=== PATIENT | male | born 2000 | race Caucasian/White ===

== ENCOUNTER 2019-10-07 11:37 | Inpatient (IN) | payer MEDICAID ==
[~2019-10-07] VITALS: Ht 172.7 cm; Wt 76.0 kg
--- NOTE | 2019-10-07 14:45 | NUR ---
ADMIT NOTE Patient is 18 year old male who was deemed not to have the capacity to assist his managing attorney in preparation of his defense and does not demonstrate sufficient knowledge of the court system. Therefore it was recommended he be placed in an inpatient unit designed to assist in return to competency (1370.) In the past he has been diagnosed with Bipolar I disorder, substance abuse disorder and PTSD. [facility], [facility] and other psychiatric facilities. Upon admission he reports hearing voices and seeing things "all the time, they never go away." he was cooperative with admission process.
[2019-10-07] MEDS ORDERED: acetaminophen 325mg tablet PO PRN ×2 (14:55)
[2019-10-07] MEDS ORDERED: mag hydrox/Alum hydrox/simeth 30ml oral suspension PO PRN (14:55)
[2019-10-07] MEDS ORDERED: loperamide 2mg capsule PO PRN (14:55)
[2019-10-07] MEDS ORDERED: magnesium hydroxide 30ml (MOM) UD suspension PO PRN (14:55)
[2019-10-07] MEDS: LORazepam 1 MG tablet PO PRN ×3 (15:05→22:00)
[2019-10-07 15:30] VITALS: BP 142/76
[2019-10-07 15:59] VITALS: BP 142/76
[2019-10-07] MEDS ORDERED: NO HOME MEDS (17:32)
[2019-10-07 20:00] VITALS: BP 142/76
[2019-10-07] MEDS ORDERED: LORazepam 1 MG tablet PO PRN (20:00)
[2019-10-07] MEDS ORDERED: olanzapine 10mg tablet PO ONE (21:00)
--- NOTE | 2019-10-07 22:20 | NUR ---
Nursing Progress Note: Legal hold: 1370 Client on involuntary status to determine competency for court Report received from nurse with use of JAIR Castañeda Why are they here:.Patient is 18 year old male who was deemed not to have the capacity to assist his real estate attorney in preparation of his defense and does not demonstrate sufficient knowledge of the court system. Therefore it was recommended he be placed in an inpatient unit designed to assist in return to competency (1370.) In the past he has been diagnosed with Bipolar I disorder, substance abuse disorder and PTSD. He has been in and out of [facility], the residential and other psychiatric facilities. Upon admission he reports hearing voices and seeing things "all the time, they never go away." he was cooperative with admission process. Assessment What has happened this shift: Pt was in the rec room at change of shift socializing with other patients. He is hypomanic and has rapid speech. He is asking to play the guitar, get his shoes, wants the remote and wants to know when he can leave. Pt growls when he is told no or to wait for something but he does attempt to follow direction when redirected. Pt was asked to refrain from cussing as he became loud and began cussing while on the phone with "tony". Pt states he doesnt like to take meds but is med compliant. He reports that he hears voices and sees things "but I tune them out, they're always there." Pt also reports nightmares but is dismissive about this and waves his hand stating "I dont want to talk about it, why are you being so nice to me?.. nobody asks how I am." Pt repeats that he doesnt like meds but he is dancing and jumping up and down and states "Im so happy, I can't sleep when Im happy, do you have any Seroquel?" Pt was med compliant with HS meds and also had 2 prn doses of Ativan before laying down in bed. S/I, H/I: Denies A/VH: hears voices and sees things but he "tunes them out" Sleep: reports that he sleeps good ADL's: independent will need prompts and reminders Group attendance: no evening groups but interacts socially with other patients and staff Were meds taken: yes Any med S/E none reported or observed Mental Status Exam Appearance: unkempt, unshaven, wearing green scrubs Eye contact: good Behavior: pt is jumping up and down, dancing, has rapid speech, has to be redirected often for shouting, pt attempts to calm himself and is directable but has a hard time maintaining a calm demeanor Speech: rapid, pressured, loud Mood: euthymic, agitated Affect: labile Thought process: tangential, Thought Content: wants his shoes, wants to leave, wants to play the guitar, Cognition: a/ox4 Insight: fair Judgment: poor Interventions PRN's used: ativan Therapeutic interventions: Maintained a safe and therapeutic environment, medication administration/monitoring/education, monitored behavior and need for intervention, provided active listening and positive encouragement, maintained Q 15min safety checks. Restraints/seclusion/emergency medication: N/A Justification of Continued Inpatient Treatment: Patient is here to determine if competency can be restored for court.
[2019-10-08 07:56] LABS: CHOL/HDL RATIO 4.2 (0.00-4.99); CHOLESTEROL 129 MG/DL (0-200); HDL CHOLESTEROL 31 MG/DL (35-60); LDL CHOLESTEROL 91 MG/DL (50-100); TRIGLYCERIDES 61 MG/DL (20-135)
[2019-10-08 08:00] VITALS: BP 118/82
[2019-10-08 08:26] LABS: HEMOGLOBIN A1C 5.6 % (4.5-6.2)
--- NOTE | 2019-10-08 17:22 | NUR ---
Nursing Progress Note: Legal hold: 1370 Client on involuntary status to determine competency for court Report received from nurse, JAGDEEP Adair with use of SBAR Why are they here: Pt deemed not to have the capacity to assist his erisa attorney in preparation of his defense and does not demonstrate sufficient knowledge of the court system. Therefore it was recommended he be placed in an inpatient unit designed to assist in return to competency (1370). In the past he has been diagnosed with Bipolar I disorder, substance abuse disorder and PTSD. He has been [facility] and out of [facility], the [facility] and other psychiatric facilities. Upon admission he reports hearing voices and seeing things "all the time, they never go away." he was cooperative with admission process. Assessment What has happened this shift: Pt asleep at start of shift. Pt awoke for breakfast and was later seen up on the unit; singing and dancing and visiting w/peers and staff. S/I, H/I: Denies A/VH: Does not appear to be responding to internal stimuls Sleep: N/A ADL's: independent Group attendance: N/A Were meds taken: Yes Any med S/E: None reported or observed Mental Status Exam Appearance: unkempt, unshaven, wearing green scrubs Eye contact: good Behavior: Pt observed on the unit singing and dancing Speech: rapid, loud Mood: Inpatient w/peers and staff Affect: labile Thought process: Linear Thought Content: in the present Cognition: A/Ox4 Insight: Fair Judgment: Poor Interventions PRN's used: N/A Therapeutic interventions: Provided am assessment w/therapeutic communication and active listening, monitored behavior provided redirecting as needed, maintained Q 15min safety checks. Restraints/seclusion/emergency medication: N/A Justification of Continued Inpatient Treatment: Patient is here to determine if competency can be restored for court.
[2019-10-08] MEDS: divalproex sod 250mg ER (24-hour) tablet PO SCH (20:11)
[2019-10-08] MEDS: olanzapine 10mg tablet PO SCH (20:11)
[2019-10-08] MEDS: LORazepam 1 MG tablet PO PRN (21:23)
--- NOTE | 2019-10-08 22:22 | NUR ---
Nursing Progress Note: Legal hold: 1370 Client on involuntary status to determine competency for court Report received from nurse, JAGDEEP Adair with use of SBAR Why are they here: Pt deemed not to have the capacity to assist his criminal defense attorney in preparation of his defense and does not demonstrate sufficient knowledge of the court system. Therefore it was recommended he be placed in an inpatient unit designed to assist in return to competency (1370). In the past he has been diagnosed with Bipolar I disorder, substance abuse disorder and PTSD. He has been in and out of [facility], [facility] and other psychiatric facilities. Upon admission he reports hearing voices and seeing things "all the time, they never go away." he was cooperative with admission process. Assessment What has happened this shift: Pt was socializing with other patients in the hallway at change of shift. Pt continues to be hypomanic, speech is tangential and he laughing and joking with others. Pt is flirtatious with female staff and patients and is redirected multiple times. Pt was seen antagonizing other patients, standing and then dancing in front of patients attempting to watch tv and making faces at other patients and laughing at them when they are in crisis. Pt was redirected to his room at and [facility] but does go to his room. S/I, H/I: Denies A/VH: pt states he hears voices all the time but ignores them, pt asks other patients, "are you seeing what I'm seeing? Oh I see things other people dont all the time" Sleep: pt reports sleeping well at night ADL's: independent Group attendance: N/A Were meds taken: Yes, pt complains about taking medications but takes them. Any med S/E: None reported or observed Mental Status Exam Appearance: unkempt, unshaven, wearing street clothes. Eye contact: good Behavior: Pt observed on the unit singing and dancing Speech: rapid, loud Mood: anxious, euthymic Affect: labile Thought process: Linear Thought Content: in the present Cognition: A/Ox4 Insight: Fair Judgment: Poor Interventions PRN's used: N/A Therapeutic interventions: Provided am assessment w/therapeutic communication and active listening, monitored behavior provided redirecting as needed, maintained Q 15min safety checks. Restraints/seclusion/emergency medication: N/A Justification of Continued Inpatient Treatment: Patient is here to determine if competency can be restored for court.
[2019-10-09 07:30] VITALS: BP 126/68
[2019-10-09] MEDS: divalproex sod 250mg ER (24-hour) tablet PO SCH ×2 (07:58→20:47)
[2019-10-09] MEDS ORDERED: LORazepam 2 mg/ml vial IM PRN (11:55)
[2019-10-09] MEDS ORDERED: diphenhydrAMINE 25mg capsule PO PRN (11:55)
[2019-10-09] MEDS ORDERED: haloperidol 1mg tablet PO PRN (11:55)
[2019-10-09] MEDS ORDERED: diphenhydrAMINE 50 mg/ml inj IM PRN (11:55)
[2019-10-09] MEDS ORDERED: haloperidol lactate 5mg/ml inj IM PRN (11:55)
--- NOTE | 2019-10-09 15:13 | NUR ---
Nursing Progress Note: Legal hold: 1370 Client on involuntary status to determine competency for court Report received from nurse, JAGDEEP Adair with use of SBAR Why are they here: Pt deemed not to have the capacity to assist his business attorney in preparation of his defense and does not demonstrate sufficient knowledge of the court system. Therefore it was recommended he be placed in an inpatient unit designed to assist in return to competency (1370). In the past he has been diagnosed with Bipolar I disorder, substance abuse disorder and PTSD. He has been in and out of [facility], the senior care and other psychiatric facilities. Upon admission he reports hearing voices and seeing things "all the time, they never go away." he was cooperative with admission process. Assessment What has happened this shift: Pt is up on the unit pacing hallways and asking for "music." Pt given the headphones. Pt loud and intrusive w/staff and peers. At one point he was re-directed and became loud and yelling as he went down the woods to his room. Ativan 2mg given. Pt became quieter and was easier to re-direct after taking the medication. He was started on Depakote this morning. S/I, H/I: Denies A/VH: Denies Sleep: N/A ADL's: independent Group attendance: N/A Were Meds taken: Yes Any med S/E: None reported or observed Mental Status Exam Appearance: Unkempt, disheveled; wearing green scrubs Eye contact: good Behavior: Intrusive, demanding and loud Speech: Loud Mood: Irritable Affect: dysphoric Thought process: Linear Thought Content: Self-centered Cognition: A/Ox4 Insight: Fair Judgment: Poor Interventions PRN's used: N/A Therapeutic interventions: Provided am assessment w/therapeutic communication and active listening, monitored behavior provided redirecting as needed, maintained Q 15min safety checks. Restraints/seclusion/emergency medication: N/A Justification of Continued Inpatient Treatment: Patient is here to determine if competency can be restored for court.
[2019-10-09] MEDS: olanzapine 10mg tablet PO SCH (20:47)
[2019-10-09] MEDS: LORazepam 1 MG tablet PO PRN (21:56)
--- NOTE | 2019-10-10 00:15 | NUR ---
Nursing Progress Note: Legal hold: 1370 Client on involuntary status to determine competency for court Report received from nurse, JAGDEEP Santiago with use of SBAR Why are they here: Pt deemed not to have the capacity to assist his assistant attorney general in preparation of his defense and does not demonstrate sufficient knowledge of the court system. Therefore it was recommended he be placed in an inpatient unit designed to assist in return to competency (1370). In the past he has been diagnosed with Bipolar I disorder, substance abuse disorder and PTSD. He has been in and out of [facility], the longterm and other psychiatric facilities. Upon admission he reports hearing voices and seeing things "all the time, they never go away." he was cooperative with admission process. Assessment What has happened this shift: Pt walking around unit, socializing with staff and peers. Pt is hypomanic, tangential, and joking around with others. Pt spent majority of time wanting to watch music videos. Took a shower and talked on the the phone with his mom. Pt parrots RN speech frequently and then laughs. Intrusive behavior is re-directable and pt is compliant with medications. S/I, H/I: Denies A/VH: Denies, But observed to be preoccupied with IS Sleep: See Sleep Assessment ADL's: Independent Group attendance: N/A Were meds taken: Yes, States he doesn't want to take them but will Any med S/E: None reported or observed Mental Status Exam Appearance: unkempt, unshaven, wearing street clothes Eye contact: good Behavior: Talking loudly, running (redirected to stop), watching music videos, laughing, rapping Mood: Euthymic Affect: Blunted with brightening Thought process: Linear, tangential Thought Content: in the present Cognition: A/Ox4 Insight: Poor Judgment: Poor Interventions PRN's used: Ativan 2mg Therapeutic interventions: Provided am assessment w/therapeutic communication and active listening, monitored behavior provided redirecting as needed, maintained Q 15min safety checks. Restraints/seclusion/emergency medication: N/A Justification of Continued Inpatient Treatment: Patient is here to determine if competency can be restored for court.
[2019-10-10] MEDS: divalproex sod 250mg ER (24-hour) tablet PO SCH ×2 (07:58→20:15)
--- NOTE | 2019-10-10 12:47 | NUR ---
PSYCHOSOCIAL ASSESSMENT Sergio is a 18 y/o single male who is currently at [facility] on a 1370 to get restored to competency. He has a history of Oppositional Defiant Disorder, Bipolar, PTSD, and amphetamine and cannabis abuse. He has been hospitalized twice at [facility] and once at [place]. He has a history of non-compliance with treatment. On the unit, Sergio presents as hyper-verbal, intrusive, sexually inappropriate, with rapid, pressured speech. He was a poor historian and appeared to say things to account underwriter trying to get a reaction from account underwriter. MARI Kelly Addendum: 10/10/19 at 1249 by Sidra Neville Amended: Links added.
--- NOTE | 2019-10-10 15:22 | NUR ---
Nursing Progress Note: Legal hold: 1370 Client on involuntary status to determine competency for court Report received from nurse, JAGDEEP Adair with use of SBAR Why are they here: Pt deemed not to have the capacity to assist his bonderizer in preparation of his defense and does not demonstrate sufficient knowledge of the court system. Therefore it was recommended he be placed in an inpatient unit designed to assist in return to competency (1370). In the past he has been diagnosed with Bipolar I disorder, substance abuse disorder and PTSD. He has been in and out of [facility], the [facility] and other psychiatric facilities. Upon admission he reports hearing voices and seeing things "all the time, they never go away." he was cooperative with admission process. Assessment What has happened this shift: Patient was asleep at change of shift and up before breakfast. Patient is loud and intrusive w/staff and peers. Patient is able to redirect with much encouragement. Patient also has inappropriate statements at times. Patient got upset at one of the Techs and called him a "Spic" after patient was corrected for saying something inappropriate.. Patient then went to his room. After cooling down patient is in the woods smiling and laughing. Patient needs better boundaries with peers and staff. Patient takes his meds as prescribed. Patient states he wants to go home. Patient has a abrasion on his left forearm that he was scratching and started to bleed. RN cleansed area, placed Neosporin on wound and bandaged wound. Patient's behavior was better today. Patient came out of his room with marker on his face and arms. Patient stated he is bored. RN offered patient paper but patient declined. S/I, H/I: Denies A/VH: Denies Sleep: N/A ADL's: independent Group attendance: N/A Were Meds taken: Yes Any med S/E: None reported or observed Mental Status Exam Appearance: Unkempt, disheveled; his own clothes. Eye contact: good Behavior: Intrusive, demanding and loud Speech: Loud Mood: Labile Affect: dysphoric Thought process: Linear Thought Content: Self-centered Cognition: A/Ox4 Insight: Fair Judgment: Poor Interventions PRN's used: N/A Therapeutic interventions: Provided am assessment w/therapeutic communication and active listening, monitored behavior provided redirecting as needed, maintained Q 15min safety checks. Restraints/seclusion/emergency medication: N/A Justification of Continued Inpatient Treatment: Patient is here to determine if competency can be restored for court.
--- NOTE | 2019-10-10 15:50 | NUR ---
Initial: Pt admitted on 1370 with bipolar disorder. Pt currently on regular diet documented with 100% PO intake meeting nutrient needs. LBM 5/4 documented as moderate, with PRN bowel care available. No edema or wounds. No nutrition diagnosis at this time. Will continue to follow. Recommendations: 1) Continue regular diet 2) Bowel care PRN 3) Wt per rx Addendum: 10/10/19 at [address] Amended: Links added.
[2019-10-10] MEDS: olanzapine 10mg tablet PO SCH (20:15)
[2019-10-10] MEDS: LORazepam 1 MG tablet PO PRN (21:44)
--- NOTE | 2019-10-11 00:58 | NUR ---
Nursing Progress Note: Legal hold: 1370 Client on involuntary status to determine competency for court Report received from nurseQuinton RN with use of SBAR Why are they here: Pt deemed not to have the capacity to assist his county attorney in preparation of his defense and does not demonstrate sufficient knowledge of the court system. Therefore it was recommended he be placed in an inpatient unit designed to assist in return to competency (1370). In the past he has been diagnosed with Bipolar I disorder, substance abuse disorder and PTSD. He has been in and out of [facility], the group home and other psychiatric facilities. Upon admission he reports hearing voices and seeing things "all the time, they never go away." he was cooperative with admission process. Assessment What has happened this shift: Pt continues to be intrusive but re-directable, inserting himself into both staff and peer conversations. Remains hyper-verbal and energetic, having to be asked not to run multiple times. Pt requesting seroquel this evening and reacts by fake crying when he is told that is not prescribed. Pt's affect labile this evening, switching was euphoric to serious and intense within a short span during interactions. He is compliant with HS medications and directions from staff; occasionally sexually inappropriate but maintaining boundaries from pts. Pt sleeping well and was agreeable to go to room at 2200, when staff said it was 'quiet time'. S/I, H/I: Denies A/VH: Denies Sleep: See Sleep Assessment ADL's: Independent Group attendance: N/A Were meds taken: Yes, States he doesn't want to take them but will Any med S/E: None reported or observed Mental Status Exam Appearance: Showered, wearing street clothes Eye contact: good Speech: Pressured, hyperverbal Behavior: Talking loudly, running (redirected to stop), watching music videos, laughing Mood: Euthymic Affect: Labile Thought process: Flight of ideas Thought Content: wanting seroquel Cognition: A/Ox4 Insight: Poor Judgment: Poor Interventions PRN's used: Ativan 2mg Therapeutic interventions: Provided am assessment w/therapeutic communication and active listening, monitored behavior provided redirecting as needed, maintained Q 15min safety checks. Restraints/seclusion/emergency medication: N/A Justification of Continued Inpatient Treatment: Patient is here to determine if competency can be restored for court.
[2019-10-11 07:30] VITALS: BP 135/77
[2019-10-11] MEDS: divalproex sod 250mg ER (24-hour) tablet PO SCH (07:52)
--- NOTE | 2019-10-11 17:38 | NUR ---
Nursing Progress Note: Legal hold: 1370 Client on involuntary status to determine competency for court Report received from nurse, JAGDEEP Ahn with use of SBAR Why are they here: Pt deemed not to have the capacity to assist his real estate attorney in preparation of his defense and does not demonstrate sufficient knowledge of the court system. Therefore it was recommended he be placed in an inpatient unit designed to assist in return to competency (1370). In the past he has been diagnosed with Bipolar I disorder, substance abuse disorder and PTSD. He has been in and out of [facility], the group home and other psychiatric facilities. Upon admission he reports hearing voices and seeing things "all the time, they never go away." he was cooperative with admission process. Assessment What has happened this shift: Pt. sleeping at start of shift. Pt. awake for medications and breakfast. Pt. took all medications and ate all meals. Pt. requesting more food. Pt. refused physicall assessment, states, "I'm tired of everyone asking the same things of me." Pt. got into verbal confrontation with a female pt. and given redirection, however, pt. is difficult to redirect. Pt. denies SI/HI, A/V hallucinations. Pt. wearing headphones, pacing, and raping loudly and cursing. Pt. is difficult to redirect and informed that security would be called if pt. did not listen to staff redirection. S/I, H/I: Denies A/VH: Denies Sleep: Pt. napped for 3 hours during day shift. ADL's: Independent Group attendance: N/A Were meds taken: Yes Any med S/E: None reported or observed Mental Status Exam Appearance: Showered, wearing street clothes Eye contact: good Speech: Loud, Pressured, hyperverbal Behavior: Rapping, cursing, arguing loudly with female peer. Mood: Mischeivous Affect: Labile Thought process: Linear with flight of ideas. Thought Content: Wanting discharge. Cognition: A/Ox4 Insight: Poor Judgment: Poor Interventions PRN's used: None Therapeutic interventions: Provided am assessment w/therapeutic communication and active listening, monitored behavior provided redirecting as needed, maintained Q 15min safety checks. Restraints/seclusion/emergency medication: N/A Justification of Continued Inpatient Treatment: Patient is here to determine if competency can be restored for court.
[2019-10-11] MEDS: divalproex sodium 250mg tablet PO SCH (20:03)
[2019-10-11] MEDS: OLANZAPINE 5 MG TABLET PO SCH (20:03)
[2019-10-11] MEDS: LORazepam 1 MG tablet PO PRN (20:03)
--- NOTE | 2019-10-12 04:04 | NUR ---
Nursing Progress Note: Legal hold: 1370 Client on involuntary status to determine competency for court Report received from JAGDEEP Alcantara with use of SBAR Why are they here: Patient deemed not to have the capacity to assist his erisa attorney in preparation of his defense and does not demonstrate sufficient knowledge of the court system. Therefore it was recommended he be placed in an inpatient unit designed to assist in return to competency (1370). In the past patient has been diagnosed with Bipolar I disorder, substance abuse disorder and PTSD. Patient has been in and out of [facility], [facility] and other psychiatric facilities. Upon admission patient reports hearing voices and seeing things "all the time, they never go away." he was cooperative with admission process. Assessment What has happened this shift: Patient is pacing halls at shift change. Patient presents as manic and hyperverbal. This scientific writer introduces self and established rapport. Patient refused vitals and 1:1 assessment, but was compliant with HS medications. Patient states the reason he is here "its because I stole some chicken from [employer]." "But this is a great place, there are women, good food, and that bed is like a Posturpedic." Patient is energetic pacing halls through out the shift, making grunting sounds, talking to himself, pushing himself into other patient and staff conversations. Patient is unable to focus on one subject. Patient is administered PRN Ativan 2mg with HS medication. Patient is later heard telling his peers "that these nurses here are told to tell me to be quiet" he then says something about aliens then walks away. Patient talks about wanting "to get out of here, I need to see my sister." Patient asked this scientific writer if she would change the bandages on his left forearm. Wound was cleaned and redressed. Wound area is reddened and needs to continued monitoring. During this time patient rambled on about how he "likes to do dope" and that he is gong to "smoke meth when he gets out of here." Patient is given headphones for distraction and this is effective for a short time. Patient has been redirectable this shift, but remains elevated and tangential. Patient was asked to go to this room around 2200, that is was bedtime, next thing you know patient was asleep. S/I, H/I: Patient denies. A/VH: Patient denies. Sleep: Patient does not require any sleeping PRN's. Pt. was administered 2mg Ativan with HS meds. See Sleep Assessment for total hours. ADL's: Independent Group attendance: physical therapy director no group. Were meds taken: Yes, takes medication with issue. "I like taking pills." Any med S/E: None reported or observed Mental Status Exam Appearance: Clean, wearing black shirt and jeans. Eye contact: Good Speech: Pressured, hyperverbal, loud Behavior: Intrusive, loud, impulsive. Mood: Elevated. Affect: Congruent with mood. Thought process: Flight of ideas Thought Content: "I want to get out of here," "I need to get out of here." Cognition: A/Ox4 Insight: Poor Judgment: Poor Interventions PRN's used: Ativan 2mg Therapeutic interventions: Provided therapeutic communication and active listening, monitored behavior provided redirecting as needed, medication administration/education/monitoring, boundary setting, maintained Q 15min safety checks. Restraints/seclusion/emergency medication: N/A Justification of Continued Inpatient Treatment: Patient is here to determine if competency can be restored for court.
[2019-10-12] MEDS: divalproex sodium 250mg tablet PO SCH ×2 (08:03→20:57)
[2019-10-12] MEDS: haloperidol 5mg tablet PO PRN (08:06)
--- NOTE | 2019-10-12 17:31 | NUR ---
Nursing Progress Note: Legal hold: 1370 Client on involuntary status to determine competency for court Report received from JAGDEEP Maldonado with use of SBAR Why are they here: Patient deemed not to have the capacity to assist his collections attorney in preparation of his defense and does not demonstrate sufficient knowledge of the court system. Therefore it was recommended he be placed in an inpatient unit designed to assist in return to competency (1370). In the past patient has been diagnosed with Bipolar I disorder, substance abuse disorder and PTSD. [facility] and other [facility] facilities. Upon admission patient reports hearing voices and seeing things "all the time, they never go away." he was cooperative with admission process. Assessment What has happened this shift: Pt refused am vitals or assessment. acoustic intelligence specialist went to talk with pt and he began yelling saying I already told you Im not doing anything you ask. Ill take medications and thats it. When RN came in to given am meds he yelled get the fuck out of herestop bothering me. CRN asked if he would take Haldol and pt agrees. CRN pulled Haldol for RN. Pt takes medications. Pt then took a nap after breakfast. Before lunch he was up in tv room and refused lab draw again. He attempted to negotiate doing what we ask if he can get 2 food trays at once. RN told him thats not acceptable, he needs to do what we ask without negotiation. He went to group room later in afternoon and socialized with other residents without incident and wore headphones while up in the hallways. S/I, H/I: Refused assessment A/VH: Refused assessment Sleep: 6.25 h per noc assessment. ADL's: Independent Group attendance: No groups at this time. Were meds taken: Yes Any med S/E: None Mental Status Exam Appearance: Disheveled. Wearing his own clothes Eye contact: Good Speech: Pressured, hyperverbal, loud Behavior: Loud, obstinant Mood: Labile Affect: Congruent to mood Thought process: Getting his way Thought Content: "I want to go back to snf Cognition: A/Ox4 Insight: Poor Judgment: Poor Interventions PRN's used: Haldol 10 mg Therapeutic interventions: Provided therapeutic communication and active listening, monitored behavior provided redirecting as needed, medication administration/education/monitoring, boundary setting, maintained Q 15min safety checks. Restraints/seclusion/emergency medication: N/A Justification of Continued Inpatient Treatment: Patient is here to determine if competency can be restored for court.
--- NOTE | 2019-10-12 19:25 | NUR ---
Patient refused to allow vital signs to be taken.
[2019-10-12] MEDS: OLANZAPINE 5 MG TABLET PO SCH (20:57)
[2019-10-12] MEDS: LORazepam 1 MG tablet PO PRN (20:57)
--- NOTE | 2019-10-13 03:37 | NUR ---
Nursing Progress Note: Legal hold: 1370 Client on involuntary status to determine competency for court Report received from JAGDEEP Alcantara with use of SBAR Why are they here: Patient deemed not to have the capacity to assist his trade mark attorney in preparation of his defense and does not demonstrate sufficient knowledge of the court system. Therefore it was recommended he be placed in an inpatient unit designed to assist in return to competency (1370). In the past patient has been diagnosed with Bipolar I disorder, substance abuse disorder and PTSD. Patient has been in and out of [facility] and other psychiatric facilities. Upon admission patient reports hearing voices and seeing things "all the time, they never go away." he was cooperative with admission process. Assessment What has happened this shift: Patient was pacing halls listening to headphones at shift change. Patient greets this technical writer with a high five. Patient continues to be elevated, patient was running down the woods and needed to be redirected. Patient appears not to be as intrusive tonight, but at times still needs to be reminded to wait his turn. Patient is cooperative with HS medication, but again refused vitals and physical assessment. Patient talked on the phone with his mother conversation didnt go well she is always trying to interfere, but would not elaborate. Patient went to bed shortly after his phone call. S/I, H/I: Patient denies. A/VH: Patient denies. Sleep: Patient does not require any sleeping PRN's. Pt. was administered 2mg Ativan with HS meds. See Sleep Assessment for total hours. ADL's: Independent Group attendance: mine shifter no group. Were meds taken: Yes, takes medication with issue. Any med S/E: None reported or observed Mental Status Exam Appearance: Clean, wearing black shirt and jeans. Eye contact: Good Speech: Pressured, hyperverbal, Behavior: Intrusive, loud, impulsive. Mood: Elevated. Affect: Congruent with mood. Thought process: Flight of ideas Thought Content: Immediate needs. Cognition: A/Ox4 Insight: Poor Judgment: Poor Interventions PRN's used: Ativan 2mg Therapeutic interventions: Provided therapeutic communication and active listening, monitored behavior provided redirecting as needed, medication administration/education/monitoring, boundary setting, maintained Q 15min safety checks. Restraints/seclusion/emergency medication: N/A Justification of Continued Inpatient Treatment: Patient is here to determine if competency can be restored for court.
[2019-10-13] MEDS: divalproex sodium 250mg tablet PO SCH ×2 (08:36→20:29)
--- NOTE | 2019-10-13 17:46 | NUR ---
Nursing Progress Note: Legal hold: 1370 Client on involuntary status to determine competency for court Report received from JAGDEEP Maldonado with use of SBAR Why are they here: Patient deemed not to have the capacity to assist his plate furnace operator in preparation of his defense and does not demonstrate sufficient knowledge of the court system. Therefore it was recommended he be placed in an inpatient unit designed to assist in return to competency (1370). In the past patient has been diagnosed with Bipolar I disorder, substance abuse disorder and PTSD. Patient has been in and out of [facility], [facility] and other psychiatric facilities. Upon admission patient reports hearing voices and seeing things "all the time, they never go away." he was cooperative with admission process. Assessment What has happened this shift: Pt refused AM vitals and assessment. Pt. defiant stating, I DO NOT HAVE TO LET YOU TAKE MY VITALS!. Pt. took medications and ate breakfast and went back to sleep. RN attempted to do 1:1 assessment but pt. gave minimal information. Pt. denies SI/HI, A/V hallucinations. In afternoon pt. seen walking in milieu, socializing with peers. Pt. became loud at times, rapping while listening to headphones and needed some redirection. Pt. showered. S/I, H/I: Denies A/VH: Denies Sleep: Pt. slept in AM ADL's: Independent. Pt. showered today. Group attendance: No groups at this time. Were meds taken: Yes Any med S/E: None Mental Status Exam Appearance: Clean, but disheveled. Wearing street clothes. Eye contact: Good Speech: Pressured, hyperverbal, loud Behavior: Loud, defiant at times, socializing with peers. Mood: Labile Affect: Congruent with mood Thought process: linear Thought Content: difficult to assess as pt. not cooperative during interview. Cognition: A/Ox4 Insight: Poor Judgment: Poor Interventions PRN's used: None Therapeutic interventions: Provided therapeutic communication and active listening, monitored behavior provided redirecting as needed, medication administration/education/monitoring, boundary setting, maintained Q 15min safety checks. Restraints/seclusion/emergency medication: N/A Justification of Continued Inpatient Treatment: Patient is here to determine if competency can be restored for court.
[2019-10-13 20:00] VITALS: BP 160/87
[2019-10-13] MEDS: OLANZAPINE 5 MG TABLET PO SCH (20:28)
[2019-10-13] MEDS: LORazepam 1 MG tablet PO PRN (20:30)
--- NOTE | 2019-10-13 23:44 | NUR ---
Nursing Progress Note: Legal hold: 1370 Client on involuntary status to determine competency for court Report received from JAGDEEP Alcantara with use of SBAR Why are they here: Patient deemed not to have the capacity to assist his common[place] attorney in preparation of his defense and does not demonstrate sufficient knowledge of the court system. Therefore it was recommended he be placed in an inpatient unit designed to assist in return to competency (1370). In the past patient has been diagnosed with Bipolar I disorder, substance abuse disorder and PTSD. Patient has been in and out of [facility], [facility] and other psychiatric facilities. Upon admission patient reports hearing voices and seeing things "all the time, they never go away." he was cooperative with admission process. Assessment What has happened this shift: Patient was up pacing the woods talking loudly and jumping up and down. Pt was reminded that jumping was not something we do here and he needed to talk softer. Pt agreed and talked softer. He sat in the day room watching movies till snack and was med compliant then went to bed. S/I, H/I: Denies A/VH: Denies Sleep: Pt. slept in AM ADL's: Independent. Pt. showered today. Group attendance: No groups at this time. Were meds taken: Yes Any med S/E: None Mental Status Exam Appearance: Clean, but disheveled. Wearing street clothes. Eye contact: Good Speech: Pressured, hyperverbal, loud Behavior: Loud, defiant at times, socializing with peers. Mood: Labile Affect: Congruent with mood Thought process: linear Thought Content: difficult to assess as pt. not cooperative during interview. Cognition: A/Ox4 Insight: Poor Judgment: Poor Interventions PRN's used: Ativan Therapeutic interventions: Provided therapeutic communication and active listening, monitored behavior provided redirecting as needed, medication administration/education/monitoring, boundary setting, maintained Q 15min safety checks. Restraints/seclusion/emergency medication: N/A Justification of Continued Inpatient Treatment: Patient is here to determine if competency can be restored for court.
[2019-10-14] MEDS: divalproex sodium 250mg tablet PO SCH ×2 (08:31→18:57)
--- NOTE | 2019-10-14 09:46 | NUR ---
Nursing Note: Pt refused vital signs, labs, and assessment. At 0740, notified Dr. Hernandez that pt refused labs and VS. Unable to obtain Valporate level, Dr. Hernandez said to administer AM dose of Depakote and cancel the AM labs. Will continue to monitor. Addendum: 10/14/19 at 0950 by Letty Grande RN Amended: Links added.
--- NOTE | 2019-10-14 17:49 | NUR ---
Nursing Progress Note: Legal hold: 1370 Client on involuntary status to determine competency for court Report received from JAGDEEP Long with use of SBAR Why are they here: Patient deemed not to have the capacity to assist his erisa attorney in preparation of his defense and does not demonstrate sufficient knowledge of the court system. Therefore it was recommended he be placed in an inpatient unit designed to assist in return to competency (1370). In the past patient has been diagnosed with Bipolar I disorder, substance abuse disorder and PTSD. Patient has been in and out of [facility], [facility] and other psychiatric facilities. Upon admission patient reports hearing voices and seeing things "all the time, they never go away." he was cooperative with admission process. Assessment What has happened this shift: Pt sleeping at change of shift. He refused VS and labs. Pt took medication, but would not allow assessment. Pt would not answer questions. Pt napped in the morning. He was uncooperative with pt care. Pt was up in the halls talking to other pts. At times, he was loud and intrusive. He was redirectable. S/I, H/I: TIM A/VH: TIM Sleep: Pt. slept in AM ADL's: Independent. Group attendance: No groups at this time. Were meds taken: Yes Any med S/E: None noted or observed Mental Status Exam Appearance: Disheveled, green scrubs and orange sweatshirt Eye contact: Acceptable Speech: Pressured, loud Behavior: Noncompliant with pt care, intrusive with other patients Mood: Labile Affect: Congruent with mood Thought process: Disorganized Thought Content: TIM Cognition: A/Ox4 Insight: Poor Judgment: Poor Interventions PRN's used: None Therapeutic interventions: Provided therapeutic communication and active listening, monitored behavior provided redirecting as needed, medication administration/education/monitoring, boundary setting, maintained Q 15min safety checks. Restraints/seclusion/emergency medication: N/A Justification of Continued Inpatient Treatment: Patient is here to determine if competency can be restored for court.
[2019-10-14] MEDS: LORazepam 1 MG tablet PO PRN (18:58)
[2019-10-14] MEDS: OLANZAPINE 5 MG TABLET PO SCH (18:58)
[2019-10-14 20:22] VITALS: BP 138/86
[2019-10-14] MEDS: diphenhydrAMINE 25mg capsule PO PRN (21:44)
[2019-10-14] MEDS: haloperidol 5mg tablet PO PRN (21:44)
--- NOTE | 2019-10-15 00:03 | NUR ---
Nursing Progress Note: Legal hold: 1370 Client on involuntary status to determine competency for court Report received from JAGDEEP Alcantara with use of SBAR Why are they here: Patient deemed not to have the capacity to assist his contracts attorney in preparation of his defense and does not demonstrate sufficient knowledge of the court system. Therefore it was recommended he be placed in an inpatient unit designed to assist in return to competency (1370). In the past patient has been diagnosed with Bipolar I disorder, substance abuse disorder and PTSD. Patient has been in and out of [facility], [facility] and other psychiatric facilities. Upon admission patient reports hearing voices and seeing things "all the time, they never go away." he was cooperative with admission process. Assessment What has happened this shift: Pt was up in woods being loud and intrusive at start of shift. Pt reminded of acceptable bx and was redirected to calm down. Limits set and inforced . Prn for agitation was helpful. Pt on phone with family members that went well. Pt went to bed at lights out. S/I, H/I: TIM A/VH: TIM Sleep: Pt. slept in AM ADL's: Independent. Group attendance: No groups at this time. Were meds taken: Yes Any med S/E: None noted or observed Mental Status Exam Appearance: Disheveled, green scrubs and orange sweatshirt Eye contact: Acceptable Speech: Pressured, loud Behavior: Noncompliant with pt care, intrusive with other patients Mood: Labile Affect: Congruent with mood Thought process: Disorganized Thought Content: TIM Cognition: A/Ox4 Insight: Poor Judgment: Poor Interventions PRN's used: Haldol, Ativan, Benadryl Therapeutic interventions: Provided therapeutic communication and active listening, monitored behavior provided redirecting as needed, medication administration/education/monitoring, boundary setting, maintained Q 15min safety checks. Restraints/seclusion/emergency medication: N/A Justification of Continued Inpatient Treatment: Patient is here to determine if competency can be restored for court.
[2019-10-15 08:00] VITALS: BP 140/86
[2019-10-15] MEDS: divalproex sodium 250mg tablet PO SCH ×2 (08:38→20:24)
--- NOTE | 2019-10-15 14:30 | NUR ---
Nursing Progress Note: Legal hold: 1370 Client on involuntary status for GD Report received from nurse with use of SBAR: JAGDEEP Adair Why are they here: Patient deemed not to have the capacity to assist his drying oven attendant in preparation of his defense and does not demonstrate sufficient knowledge of the court system. Therefore it was recommended he be placed in an inpatient unit designed to assist in return to competency (1370). In the past, patient has been diagnosed with Bipolar I disorder, substance abuse disorder, and PTSD. Patient has been in and out of [facility], [facility] and other psychiatric facilities. Upon admission patient reports hearing voices and seeing things "all the time, they never go away." Assessment What has happened this shift: Received patient asleep in bed at the beginning of the shift, awoke r/t laboratory on the unit to perform ordered CBC, CMP, TSH, and Valporate levels. Pt. continues to refuse blood draw despite education, states, "I'm afraid of needles! I've been letting you guys take my vitals, I'm fine!" This typewriter aligner educated pt. that labs are needed to monitor his health and the medication levels in his blood, however he continues to refuse. Pt. slept in during the morning hours, and 1:1 completed when he awoke. He denies any S/I, H/I, A/V/BAIG, and no delusional statements made. When this typewriter aligner questioned pt. regarding whether he feels competent to stand trial, he stated, "Yes! I've been ready!" When questioned regarding what he plans to tell the court, pt. reported that he plans to tell the truth. He states, "I stole fried chicken because I was hungry and my mom had kicked me out." Pt. reports that he believes his mother will let him live with her again now. He agrees that he plans to keep taking his medications and stay away from drugs. Pt. up interacting appropriately with others on the unit throughout the shift, he can become loud, impulsive, and intrusive at times, but is able to be redirected. S/I, H/I: Denies A/VH: Denies, does not appear internally preoccupied Sleep: Pt. reports he slept well, sleep hours are 6.25 ADL's: Requires redirection from staff Group attendance: N/A Were meds taken: Yes Any med S/E: None Mental Status Exam Appearance: Hair/briseno disheveled, wearing a hooded sweatshirt with quintana pulled over head Eye contact: Fair Behavior: Cooperative/RTC, restless, and impulsive/intrusive at times Speech: WNL, child-like (uses street language) Mood: Animated Affect: Slightly labile Thought process: Liner Thought Content: Preoccupation with desire to discharge and return to living with his mom Cognition: A&O Insight: Poor Judgment: Poor Interventions PRN's used: None Therapeutic interventions: Introduced self and established rapport, ensured contract for safety, provided clear and simple instructions, monitored behavior and need for intervention, monitored abrasion on wrist and changed dressing, provided redirection as needed, and maintained Q 15 min safety checks. Restraints/seclusion/emergency medication: N/A Justification of Continued Inpatient Treatment: Pt. continues to require medication adjustments and a safe and supportive environment to restore competency while awaiting court.
--- NOTE | 2019-10-15 17:02 | NUR ---
LETTERS OF COMPETENCY: Completed and placed in email marketing intern. Should go out with the mail tomorrow. See transcripts below. October 15, 2019 [facility] [address] [place] [address] Re: Sentencing of Sergio Walters Re: Certificate of Alevism to Competence (Penal Code 1372 (a)(1)) Dear [facility], Sergio Walters is a 18-year-old male found incompetent to stand trial admitted to [facility] ([facility]) on October 07, 2019. Sergio was evaluated by two clinical psychologists in [facility], Sergio was deemed incompetent to stand trial and sent for scientology/treatment to [facility] on a [address] order. A psychiatric history and physical was completed upon admission to the facility. Upon admission Sergio was found to be highly manic, he would growl when he was told no or told to wait for something. He reported constant audio hallucinations, was guarded, and suspicious of staff. Stating why are you being so nice to me. His speech was rapid, hyperverbal, and tangential, and he was not able to hold a conversation long enough to talk about his charges. During treatment Sergio continued to display rylee, he stated Im so happy, I cant sleep when Im happy at nighttime and was unable to sleep at night. He was often found pacing up and down the hallways singing, dancing, and intruding on others space. He was hypersexual and needed to be redirected from flirting with female residents. He would purposefully antagonize other residents by getting in their space, making faces at them, and laughing at them. He would growl when he was redirected. He continued to report having audio/visual hallucinations and stated are you seeing what Im seeing? Oh, I see things that other people dont all the time about his audio hallucinations he stated, they tell me to chill, kill someone, sharonda stout. After successful treatment with psychotropic medication and milieu therapy he became more euthymic. He was able to appropriately recall what happened and was able to explain the events that led up to the arrests. He participated in mock trials with staff at the facility acting in various roles. He can understand the role of the drafter chief design, criminal attorney, and role of the prosecutor. He has extensive knowledge of the criminal justice system, though most of that comes from the youth courts. Sergio has sufficient present ability to consult with his flower shop laborer/designer with a reasonable degree of rational understanding now that he has received mental health treatment and medication. He is not sure that he wants to work with a flower shop laborer/designer but has been educated on the benefits of working with one and is able to understand the ramifications. He has a factual understanding of the court proceedings he will face and the various outcomes and is competent to stand trial. Sergio has a long history of mental illness and substance use disorder. He has been hospitalized multiple times in the past years at [facility]. He has been using substances, including alcohol and amphetamines, from a young age. At this time Sergio is reporting that he is open to substance use and mental health treatment. It is this doctors recommendation that Sergio be considered for behavioral health court and assisted outpatient treatment. He is also willing to go to rehab, either inpatient or outpatient. Despite what he currently says about being ready to stay on his medications and out of trouble, it is likely from his history that he will relapse if he is not provided a wide array of treatments and secure support system. If you have any questions, please do not hesitate to contact me at [phone]. Sincerely, Provider Name Internetworking Technician [facility] CC: Director Orange Director of [facility] Transitions and Discharge (TAD) office [facility] Office October 15, 2019 [facility] [address] [place] [address] Re: Sentencing of Sergio Walters Re: Recommendation for Return to [facility] for Continued Treatment (Penal Code 1372 e) Dear [facility], Director Orange, and [address] [facility]: I am a [facility]iatrist at [facility] ([facility]) at [facility] ([facility]). I have been treating Sergio Walters since October 07, 2019. When Sergio arrived at our facility he was non-sensical, would not answer questions appropriately, and did not appear to be aware of or appropriately understand the legal situation and charges that brought him to our facility. While admitted to [facility] he has been treated with medications, and milieu treatment and has shown improvement in his functioning, ability to communicate, and comprehension. Sergio is competent to stand trial. At this time Sergio is stable on his medications and can return to [facility], where they can continue to treat him with medications as prescribed at our facility. If he is going to stand trial, we recommend that he not be released to the community as this will put him at a high risk of stopping his medications. It is the recommendation of this facility that [facility] work with client to open services and give him wrap around care, including assisted outpatient treatment and behavioral health court to ensure his success and reduce the chances of recidivism. If you have any questions, please do not hesitate to contact me at [phone]. Sincerely, Provider Name Internetworking Technician [facility] CC: Director Orange Director of [facility] Transitions and Discharge (TAD) office [facility] Office
[2019-10-15 20:04] VITALS: BP 138/91
[2019-10-15] MEDS: OLANZAPINE 5 MG TABLET PO SCH (20:24)
--- NOTE | 2019-10-15 22:17 | NUR ---
Nursing Progress Note: Legal hold: 1370 Client on involuntary status for GD Report received from nurse with use of SBAR: JAGDEEP Alcantara Why are they here: Patient deemed not to have the capacity to assist his arabic linguist in preparation of his defense and does not demonstrate sufficient knowledge of the court system. Therefore it was recommended he be placed in an inpatient unit designed to assist in return to competency (1370). In the past, patient has been diagnosed with Bipolar I disorder, substance abuse disorder, and PTSD. Patient has been in and out of [facility], [facility] and other psychiatric facilities. Upon admission patient reports hearing voices and seeing things "all the time, they never go away." Assessment What has happened this shift: Pt was pacing in the hallways at change of shift. He approached nurses station and became flirtatious with staff telling female nurses he wanted them for a nurse and calling them his best friend. Pt reports having a good day, he denies s/i, denies hearing voices and reports his medicine is helping but he doesnt like taking it. He requested Ativan at HS stating it helps him calm down to sleep. Pt was dancing in front of other patients in the rec room and was directed to allow others to watch tv and he moved to the side and continued to dance before going to bed. S/I, H/I: Denies A/VH: Denies Sleep: see sleep hours ADL's: Requires redirection from staff Group attendance: N/A Were meds taken: Yes Any med S/E: None Mental Status Exam Appearance: Unkempt, unshaven, wearing green scrubs and sweatshirt. Eye contact: Fair Behavior: Cooperative/RTC, restless, and impulsive/intrusive at times Speech: WNL, child-like Mood: Animated, anxious Affect: Slightly labile Thought process: Linear, Thought Content: talking about going home Cognition: A&O Insight: Poor Judgment: Poor Interventions PRN's used: ativan Therapeutic interventions: Introduced self and established rapport, ensured contract for safety, provided clear and simple instructions, monitored behavior and need for intervention, monitored abrasion on wrist and changed dressing, provided redirection as needed, and maintained Q 15 min safety checks. Restraints/seclusion/emergency medication: N/A Justification of Continued Inpatient Treatment: Pt. continues to require medication adjustments and a safe and supportive environment to restore competency while awaiting court.
[2019-10-16] MEDS: divalproex sodium 250mg tablet PO SCH ×2 (07:50→20:42)
[2019-10-16 10:00] VITALS: BP 147/101
--- NOTE | 2019-10-16 14:53 | NUR ---
Reassessment: Regular diet, great appetite, 75-100% PO intake meeting nutrient needs. No nutrition diagnosis at this time. Will continue to follow. Recommendations: 1) Continue regular diet 2) Bowel care PRN 3) Wt per rx Addendum: 10/16/19 at [address] Amended: Links added.
--- NOTE | 2019-10-16 17:29 | NUR ---
Nursing Progress Note: Legal hold: 1370 Client on involuntary status for GD Report received from RN with use of SBAR Why are they here: Patient deemed not to have the capacity to assist his assistant county attorney in preparation of his defense and does not demonstrate sufficient knowledge of the court system. Therefore it was recommended he be placed in an inpatient unit designed to assist in return to competency (1370). In the past, patient has been diagnosed with Bipolar I disorder, substance abuse disorder, and PTSD. Patient has been in and out of [facility], [facility] and other psychiatric facilities. Upon admission patient reports hearing voices and seeing things "all the time, they never go away." Assessment What has happened this shift: Received patient asleep in bed w/o distress at the beginning of the shift. Pt woke for vitals and refused to have then taken. He returned to sleep and woke for breakfast and took AM med w/o issue. Pt. continues to refuse blood draw despite encouragement and education, stating, "I'm afraid of needles! Pt had outburst of yelling in his room and able to calm in a few minutes. Pt watched TV in both recreation room and community room and interacted with others w/o outbursts. He doesnt engage in dialogue, rather goes on rants about a topic or repeats a statement over and over. Pt returned to his room in late afternoon and laid down. S/I, H/I: Denies A/VH: Denies, does not appear internally preoccupied Sleep: Napped in AM ADL's: Requires encouragement Group attendance: N/A Were meds taken: Yes Any med S/E: None Mental Status Exam Appearance: Hair/briseno disheveled, wearing a hooded sweatshirt Eye contact: Fair Behavior: Cooperative at times, restless, and impulsive/intrusive at times Speech: WNL, child-like (uses street language) Mood: Animated Affect: Slightly labile Thought process: Liner Thought Content: Preoccupation with music and rappers Cognition: A&O Insight: Poor Judgment: Poor Interventions PRN's used: None Therapeutic interventions: Introduced self and established rapport, ensured contract for safety, provided clear and simple instructions, monitored behavior and need for intervention, monitored abrasion on wrist and changed dressing, provided redirection as needed, and maintained Q 15 min safety checks. Restraints/seclusion/emergency medication: N/A Justification of Continued Inpatient Treatment: Pt. continues to require medication adjustments and a safe and supportive environment to restore competency while awaiting court.
[2019-10-16 20:08] VITALS: BP 140/85
[2019-10-16] MEDS: OLANZAPINE 5 MG TABLET PO SCH (20:40)
--- NOTE | 2019-10-16 22:20 | NUR ---
Nursing Progress Note: Legal hold: 1370 Client on involuntary status for GD Report received from Manoj GANNON with use of SBAR Why are they here: Patient deemed not to have the capacity to assist his privacy attorney in preparation of his defense and does not demonstrate sufficient knowledge of the court system. Therefore it was recommended he be placed in an inpatient unit designed to assist in return to competency (1370). In the past, patient has been diagnosed with Bipolar I disorder, substance abuse disorder, and PTSD. Patient has been in and out of [facility], [facility] and other psychiatric facilities. Upon admission patient reports hearing voices and seeing things "all the time, they never go away." Assessment What has happened this shift: Pt was in rec room at change of shift watching tv. He spent time talking and joking with peers and continues to be somewhat intrusive. There was a lot of commotion on the unit with other patients and patient was able to sit quietly and watch a movie with other patients when asked to do so. Pt took meds and went to bed. S/I, H/I: Denies A/VH: Denies Sleep: reports he sleeps well at night ADL's: Showered this evening Group attendance: N/A Were meds taken: Yes Any med S/E: None Mental Status Exam Appearance: Hair/briseno disheveled, wearing a hooded sweatshirt Eye contact: Fair Behavior: Cooperative at times, restless, and impulsive/intrusive at times Speech: WNL, Mood: Animated Affect: Slightly labile Thought process: Liner Thought Content: Preoccupation with music and rappers Cognition: A&O Insight: Poor Judgment: Poor Interventions PRN's used: None Therapeutic interventions: Introduced self and established rapport, ensured contract for safety, provided clear and simple instructions, monitored behavior and need for intervention, monitored abrasion on wrist and changed dressing, provided redirection as needed, and maintained Q 15 min safety checks. Restraints/seclusion/emergency medication: N/A Justification of Continued Inpatient Treatment: Pt. continues to require medication adjustments and a safe and supportive environment to restore competency while awaiting court.
[2019-10-17 07:00] LABS: BASOPHILS % (AUTO) 0.4 % (0-1); EOSINOPHILS # (AUTO) 0.4 X10'3 (0-0.9); EOSINOPHILS % (AUTO) 4.6 % (0-6); HEMATOCRIT 47.5 % (42.0-52.0); LYMPHOCYTES # (AUTO) 3.7 X10'3 (1.1-4.8); LYMPHOCYTES % (AUTO) 42.4 % (21-51); MEAN CORPUSCULAR HEMOGLOBIN 30.6 PG (27.0-31.0); MEAN CORPUSCULAR HGB CONC 33.7 g/dL (33.0-36.5); MEAN CORPUSCULAR VOLUME 90.9 FL (78-98); MEAN PLATELET VOLUME 7.3 FL (7.4-10.4); MONOCYTES # (AUTO) 0.7 X10'3 (0-0.9); MONOCYTES % (AUTO) 8.4 % (2-12); NEUTROPHILS # (AUTO) 3.8 X10'3 (1.8-7.7); NEUTROPHILS % (AUTO) 44.2 % (42-75); PLATELET COUNT 237 X10'3 (140-440); RED BLOOD COUNT 5.23 X10'6 (4.70-6.10); RED CELL DISTRIBUTION WIDTH 13.9 % (11.5-14.5); WHITE BLOOD COUNT 8.7 X10'3 (4.5-11.0)
[2019-10-17 07:22] LABS: ANION GAP 8 (8-16); BILIRUBIN,TOTAL 0.2 MG/DL (0.1-1.0); BLOOD UREA NITROGEN 13 MG/DL (7-18); BUN/CREATININE RATIO 15.5 (5.4-32.0); CALCIUM 9.3 MG/DL (8.5-10.1); CHLORIDE 104 MMOL/L (99-107); CREATININE 0.84 MG/DL (0.60-1.10); GLUCOSE 123 MG/DL (70-104); POTASSIUM 3.6 MMOL/L (3.5-5.1); SODIUM 140 MMOL/L (135-145); TOTAL CARBON DIOXIDE 27.8 MMOL/L (24-32); eGFR > 90 ML/MIN
[2019-10-17 07:23] LABS: ALANINE AMINOTRANSFERASE 19 U/L (12-78); ALBUMIN 4.1 G/DL (3.4-5.0); ALBUMIN/GLOBULIN RATIO 1.1 (1.1-1.5); ALKALINE PHOSPHATASE 79 IU/L (20-180); ASPARTATE AMINO TRANSFERASE 14 U/L (10-37); VALPROATE 90 UG/ML (50-100)
[2019-10-17] MEDS: divalproex sodium 250mg tablet PO SCH ×2 (07:29→20:45)
[2019-10-17 07:53] VITALS: BP 137/89
--- NOTE | 2019-10-17 17:56 | NUR ---
Nursing Progress Note: Legal hold: 1370 Client on involuntary status for GD Report received from Mana GANNON with use of SBAR Why are they here: Patient deemed not to have the capacity to assist his document review attorney in preparation of his defense and does not demonstrate sufficient knowledge of the court system. Therefore it was recommended he be placed in an inpatient unit designed to assist in return to competency (1370). In the past, patient has been diagnosed with Bipolar I disorder, substance abuse disorder, and PTSD. Patient has been in and out of [facility], the shelter and other psychiatric facilities. Upon admission patient reports hearing voices and seeing things "all the time, they never go away." Assessment What has happened this shift: Pt. asleep at start of shift. Pt. awoken for blood draw but refused. RN informed pt. of importance of monitoring drug levels. Pt. became irate, throwing food on the ground, taking his shirt off and screaming in the hallway. Pt. then became calm and agreed to have blood drawn. Pt. walked up to this nurse and said, "it's all good". 1:1 done at bedside. Pt. denies SI/HI, but reports auditory hallucinations. Pt. states voices tell him, "Keep it going, keep it going". Pt. reports he's anxious about possibly moving in with his parents, however, pt. does not to discuss details. Pt. is easily distracted and during interview says, "I'm hungry, I want a snack". Pt. playing game of Birthday Gorilla hole with other patients and heard laughing and joking. Pt. becomes elated at times, jumping and yelling and reminded to reduce noise level. Pt. is difficult to redirect. In afternoon pt. made innapropriate comments to female staff, pt. responded to verbal-redirection. S/I, H/I: Denies A/VH: Reports voices telling him, "Keep it going". Sleep: Pt. did not nap. ADL's: Independent. Pt. showered today. Group attendance: N/A Were meds taken: Yes Any med S/E: None Mental Status Exam Appearance: Clean but disheveled, wearing street clothes. Eye contact: Fair Behavior: Resistive to care initially in AM but became more cooperative Speech: Loud, hyperverbal, pressured. Mood: Labile, animated. Affect: Congruent with affect. Thought process: Liner Thought Content: Circumstantial. playing games, listening to music, food. Cognition: A&O x4 Insight: Poor Judgment: Poor Interventions PRN's used: None Therapeutic interventions: Introduced self and established rapport, ensured contract for safety, provided clear and simple instructions, monitored behavior and need for intervention, monitored abrasion on wrist and changed dressing, provided redirection as needed, and maintained Q 15 min safety checks. Restraints/seclusion/emergency medication: N/A Justification of Continued Inpatient Treatment: Pt. continues to require medication adjustments and a safe and supportive environment to restore competency while awaiting court.
[2019-10-17] MEDS: LORazepam 1 MG tablet PO PRN (18:48)
[2019-10-17 19:00] VITALS: BP 155/80
[2019-10-17] MEDS: OLANZAPINE 5 MG TABLET PO SCH (20:45)
--- NOTE | 2019-10-17 21:54 | NUR ---
Nursing Progress Note: Legal hold: 1370 Client on involuntary status for GD Report received from Maddy GANNON with use of SBAR Why are they here: Patient deemed not to have the capacity to assist his state's attorney in preparation of his defense and does not demonstrate sufficient knowledge of the court system. Therefore it was recommended he be placed in an inpatient unit designed to assist in return to competency (1370). In the past, patient has been diagnosed with Bipolar I disorder, substance abuse disorder, and PTSD. Patient has been in and out of [facility], the [facility] and other psychiatric facilities. Upon admission patient reports hearing voices and seeing things "all the time, they never go away." Assessment What has happened this shift:Pt was jumping and laughing at change of shift and attempting to flirt with nursing staff. Pt was redirected and requests ativan. Pt spoke with his mother annie and she brought him a book he wanted to read. He attempted to read after evening med pass for a short time but remains hypomanic, intrusive with staff and other patients before going to bed. S/I, H/I: Denies A/VH: Reports voices telling him "to do good things but I dont want to be good." Sleep: Pt sleeps well at night, he states he woke up too early yesterday because he didnt get ativan before bed. ADL's: Independent. Pt. showered today. Group attendance: N/A Were meds taken: Yes Any med S/E: None Mental Status Exam Appearance: Clean but disheveled, wearing street clothes. Eye contact: Fair Behavior: hypomanic Speech: Loud, hyperverbal, pressured. Mood: Labile, animated. Affect: Congruent with affect. Thought process: Liner Thought Content: Circumstantial. playing games, listening to music, food. Cognition: A&O x4 Insight: Poor Judgment: Poor Interventions PRN's used: None Therapeutic interventions: Introduced self and established rapport, ensured contract for safety, provided clear and simple instructions, monitored behavior and need for intervention, monitored abrasion on wrist and changed dressing, provided redirection as needed, and maintained Q 15 min safety checks. Restraints/seclusion/emergency medication: N/A Justification of Continued Inpatient Treatment: Pt. continues to require medication adjustments and a safe and supportive environment to restore competency while awaiting court.
[2019-10-18] MEDS: divalproex sodium 250mg tablet PO SCH ×2 (07:59→21:09)
[2019-10-18 08:00] VITALS: BP 113/60
--- NOTE | 2019-10-18 17:43 | NUR ---
Nursing Progress Note: Legal hold: 1370 Client on involuntary status for GD Report received from Lena GANNON with use of SBAR Why are they here: Patient deemed not to have the capacity to assist his claims attorney in preparation of his defense and does not demonstrate sufficient knowledge of the court system. Therefore it was recommended he be placed in an inpatient unit designed to assist in return to competency (1370). In the past, patient has been diagnosed with Bipolar I disorder, substance abuse disorder, and PTSD. Patient has been in and out of [facility], [facility] and other psychiatric facilities. Upon admission patient reports hearing voices and seeing things "all the time, they never go away." Assessment What has happened this shift: Pt. awake for vitals and allowed vitals to be taken. Pt. took all medications and ate all meals in community room. Pt. was cooperative with physical and 1:1 assessment. Pt. Denies SI/HI, but report auditory hallucinations. Pt. does not elaborate on what voices are telling him. Pt. reports feeling good and talked about a book his mother gave him. When RN asked pt. about what he wants to do in the future pt. states, "I want to go visit the mountains with my friends and smoke weed. I want to have fun!" Pt. seen pacing hallways, listening to music and singing loudly at times. Pt. social with peers. Pt. cooperative and re-directable when becomes excitable. S/I, H/I: Denies A/VH: Reports hearing voices but does not elaborate on what they say. Sleep: Pt. did not nap. ADL's: Independent. Pt. showered today. Group attendance: N/A Were meds taken: Yes Any med S/E: None Mental Status Exam Appearance: Showered, neat, wearing street clothes. Eye contact: Fair Behavior: Cooperative, pacing halls and listening to music, dancing, socializing with peers. Speech: mostly appropriate, becoming loud and pressured at times. Mood: Elated at times, but mostly euthymic. Affect: Congruent with affect. Thought process: Liner Thought Content: "Having fun" Cognition: A&O x4 Insight: Poor Judgment: Poor Interventions PRN's used: None Therapeutic interventions: Introduced self and established rapport, ensured contract for safety, provided clear and simple instructions, monitored behavior and need for intervention, monitored abrasion on wrist and changed dressing, provided redirection as needed, and maintained Q 15 min safety checks. Restraints/seclusion/emergency medication: N/A Justification of Continued Inpatient Treatment: Pt. continues to require medication adjustments and a safe and supportive environment to restore competency while awaiting court.
[2019-10-18] MEDS: LORazepam 1 MG tablet PO PRN ×2 (18:45→22:49)
[2019-10-18 19:00] VITALS: BP 153/85
[2019-10-18] MEDS: olanzapine 10mg tablet PO SCH (21:09)
--- NOTE | 2019-10-19 00:10 | NUR ---
Nursing Progress Note: Legal hold: 1370 Client on involuntary status to determine competency for court Report received from TIP Castañeda with use of SBAR Why are they here: Patient deemed not to have the capacity to assist his managing attorney in preparation of his defense and does not demonstrate sufficient knowledge of the court system. Therefore it was recommended he be placed in an inpatient unit designed to assist in return to competency (1370). In the past patient has been diagnosed with Bipolar I disorder, substance abuse disorder and PTSD. [facility] and other psychiatric facilities. Upon admission patient reports hearing voices and seeing things "all the time, they never go away." he was cooperative with admission process. Assessment What has happened this shift: Pt was ambulating the isles and appeared to agitated as he was arguing with another pt. Ativan was given with effectiveness. Pt continues to be intrusive but for the most part is redirectable. He was cooperative during 1:1 physical assessment, took all his meds without any issues. He spent some time in community room watching TV and socializing well with other patients. Denies any S/I, H/I, AV/H and although makes a lot of inappropriate statements they were not delusional. He did not appear to be responding to internal stimuli. He spent some time talking on the phone and was pretty loud but did not became agitated. Pt was having a hard time sleeping and requested another Ativan. This was given and it seemed to help. S/I, H/I: Patient denies. A/VH: Patient denies. Sleep: Currently sleeping, see sleep assessment for total hours. ADL's: Independent Group attendance: local superintendent no group. Were meds taken: Yes, takes medication with issue. Any med S/E: None reported or observed Mental Status Exam Appearance: Clean, appropriate, wearing personal clothing. Eye contact: Good, direct Speech: Pressured Behavior: Intrusive, loud, animated, anxious. Mood: Labile Affect: Congruent with mood. Thought process: Flight of ideas Thought Content: Medication, wanting to go home Cognition: A/Ox4 Insight: Poor Judgment: Poor Interventions PRN's used: Ativan 2mg X2 Therapeutic interventions: Provided therapeutic communication and active listening, monitored behavior provided redirecting as needed, medication administration/education/monitoring, boundary setting, maintained Q 15min safety checks. Restraints/seclusion/emergency medication: N/A Justification of Continued Inpatient Treatment: Patient is here to determine if competency can be restored for court.
[2019-10-19] MEDS: divalproex sodium 250mg tablet PO SCH ×2 (07:56→20:26)
[2019-10-19 08:00] VITALS: BP 141/71
--- NOTE | 2019-10-19 17:52 | NUR ---
Nursing Progress Note: Legal hold: 1370 Client on involuntary status to determine competency for court Report received from TIP Johnson with use of SBAR Why are they here: Patient deemed not to have the capacity to assist his [place] attorney in preparation of his defense and does not demonstrate sufficient knowledge of the court system. Therefore it was recommended he be placed in an inpatient unit designed to assist in return to competency (1370). In the past patient has been diagnosed with Bipolar I disorder, substance abuse disorder and PTSD. Patient has been in and out of [facility], [facility] and other psychiatric facilities. Upon admission patient reports hearing voices and seeing things "all the time, they never go away." he was cooperative with admission process. Assessment What has happened this shift: Pt sleeping at beginning of shift. He refused am vitals. When he came to breakfast CRN took vitals before giving him his tray without complication. He then went back to bed until lunch. He denies SI/HI but when asked about voices he states yeah I hear voices all the time; they tell me to do good stuff and bad stuff, but right now they are telling me to do good stuff. He took a shower and socialized with other residents. He is animated and was singing and jumping around the halls. He made inappropriate gestures with inappropriate songs but was laughing and smiling. He socialized with residents playing games in the woods and watching/singing to music videos. S/I, H/I: Denies. A/VH: Denies. Sleep: 6 h per sleep assessment ADL's: Independent Group attendance: No Were meds taken: Yes Any med S/E: None Mental Status Exam Appearance: Wearing his own clothing. Disheveled Eye contact: Fair Speech: Pressured Behavior: Loud, animated. Mood: Labile Affect: Congruent with mood. Thought process: Flight of ideas Thought Content: Medication, wanting to go home Cognition: A/Ox4 Insight: Poor Judgment: Poor Interventions PRN's used: None Therapeutic interventions: Provided therapeutic communication and active listening, monitored behavior provided redirecting as needed, medication administration/education/monitoring, boundary setting, maintained Q 15min safety checks. Restraints/seclusion/emergency medication: N/A Justification of Continued Inpatient Treatment: Patient is here to determine if competency can be restored for court.
[2019-10-19] MEDS: LORazepam 1 MG tablet PO PRN (18:46)
[2019-10-19 19:44] VITALS: BP 142/97
[2019-10-19] MEDS: olanzapine 10mg tablet PO SCH (20:26)
--- NOTE | 2019-10-19 23:52 | NUR ---
Nursing Progress Note: Legal hold: 1370 Client on involuntary status to determine competency for court Report received from TIP Castañeda with use of SBAR Why are they here: Patient deemed not to have the capacity to assist his securities attorney in preparation of his defense and does not demonstrate sufficient knowledge of the court system. Therefore it was recommended he be placed in an inpatient unit designed to assist in return to competency (1370). In the past patient has been diagnosed with Bipolar I disorder, substance abuse disorder and PTSD. Patient has been in and out of [facility], [facility] and other psychiatric facilities. Upon admission patient reports hearing voices and seeing things "all the time, they never go away." he was cooperative with admission process. Assessment What has happened this shift: Pt was somewhat agitated and overly intrusive during shift change. Ativan was given which he took without any issues. Talks a little bit about his charges and is aware he did all those things but doesnt seem to have any insight. When asked about voices he states that he does hear voices but they are mostly good things. Pt was cooperative during 1:1 physical assessment and took all his HS meds without any issues. He also requested more Ativan but since this was too early this was denied. Pt continues to be inappropriate and had to be told a couple of times that his behavior was not appropriate. He kept being intrusive and having physical contact with other patients, standing in front of other patients rooms. He was less re-directable today and appeared more anxious than previous days. Pt asks for a snack and retires to bed after finishing this. S/I, H/I: Patient denies. A/VH: Patient denies. Sleep: Currently sleeping, see sleep assessment for total hours. 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 Were meds taken: Yes, takes medication with issue. Any med S/E: None reported or observed Mental Status Exam Appearance: Clean, appropriate, wearing personal clothing. Eye contact: Good, direct Speech: Pressured Behavior: Intrusive, loud, child-like, anxious, less redirectable. Mood: Labile Affect: Constricted Thought process: Flight of ideas Thought Content: Medication, charges, snacks Cognition: A/Ox4 Insight: Poor Judgment: Poor Interventions PRN's used: Ativan 2mg Therapeutic interventions: Provided therapeutic communication and active listening, monitored behavior provided redirecting as needed, medication administration/education/monitoring, boundary setting, maintained Q 15min safety checks. Restraints/seclusion/emergency medication: N/A Justification of Continued Inpatient Treatment: Patient is here to determine if competency can be restored for court.
[2019-10-20 07:57] VITALS: BP 103/57
[2019-10-20] MEDS: divalproex sodium 250mg tablet PO SCH ×2 (08:19→20:32)
[2019-10-20] MEDS: LORazepam 1 MG tablet PO PRN ×2 (14:08→19:20)
[2019-10-20] MEDS: diphenhydrAMINE 25mg capsule PO PRN (14:08)
--- NOTE | 2019-10-20 16:21 | NUR ---
Nursing Progress Note: Legal hold: 1370 Client on involuntary status to determine competency for court Report received from JAGDEEP Perdue with use of SBAR Why are they here: Patient deemed not to have the capacity to assist his trust and estates attorney in preparation of his defense and does not demonstrate sufficient knowledge of the court system. Therefore it was recommended he be placed in an inpatient unit designed to assist in return to competency (1370). In the past patient has been diagnosed with Bipolar I disorder, substance abuse disorder and PTSD. Patient has been in and out of [facility], the [facility] and other psychiatric facilities. Upon admission patient reports hearing voices and seeing things "all the time, they never go away." he was cooperative with admission process. Assessment What has happened this shift: Pt sleeping at beginning of shift. Pt did allow vital signs and got up for breakfast. Pt has been isolative most of the morning. After lunch, pt was more visible on the unit interacting with select peers. Pt began to work himself up after lunch and became more and more hyperverbal and pressured and intrusive. Pt given ativan and benadryl which seemed to have a positive effect of calming him down. S/I, H/I: Denies. A/VH: Denies. Sleep: napped all morning ADL's: Independent Group attendance: No Were meds taken: Yes Any med S/E: None Mental Status Exam Appearance: Wearing his own clothing. Disheveled Eye contact: Fair Speech: Pressured Behavior: Loud, animated. Mood: Labile Affect: Congruent with mood. Thought process: Flight of ideas Thought Content: Medication, wanting to go home Cognition: A/Ox4 Insight: Poor Judgment: Poor Interventions PRN's used: None Therapeutic interventions: Provided therapeutic communication and active listening, monitored behavior provided redirecting as needed, medication administration/education/monitoring, boundary setting, maintained Q 15min safety checks. Restraints/seclusion/emergency medication: N/A Justification of Continued Inpatient Treatment: Patient is here to determine if competency can be restored for court.
[2019-10-20 20:12] VITALS: BP 140/86
[2019-10-20] MEDS: olanzapine 10mg tablet PO SCH (20:32)
[2019-10-20] MEDS: haloperidol 5mg tablet PO PRN (23:33)
--- NOTE | 2019-10-21 00:47 | NUR ---
Nursing Progress Note: Legal hold: 1370 Client on involuntary status to determine competency for court Report received from TIP Castañeda with use of SBAR Why are they here: Patient deemed not to have the capacity to assist his prosecuting attorney in preparation of his defense and does not demonstrate sufficient knowledge of the court system. Therefore it was recommended he be placed in an inpatient unit designed to assist in return to competency (1370). In the past patient has been diagnosed with Bipolar I disorder, substance abuse disorder and PTSD. Patient [facility]. Upon admission patient reports hearing voices and seeing things "all the time, they never go away." he was cooperative with admission process. Assessment What has happened this shift: The patient was seen at bedside for 1:1 assessment. He continues to be intrusive, loud, and inappropriate, with rapid and pressured speech. The patient denies SI/HI, but endorses voices. "I just spent the day talking to my voices. I have nice voices." he continues, "I'm gonna do better and better. I just want to get to my Mom's house or go hang out at my Dad's shop. I don't want to go to alf, I just want to hang out with my family." The patient was being intrusive and loud, so was given Ativan early in the shift. He continued after HS med pass, and was asked to go to his room, but he thought it was a game, and kept pushing buttons. While laying on his bed, he was yelling out. This time he was given 10mg Haldol, which has him sleeping at this time. S/I, H/I: Denies. A/VH: denies. Sleep: See sleep assessment. 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 Were meds taken: Yes. Any med S/E: None reported or observed Mental Status Exam Appearance: Disheveled, wears hat and personal clothing. Eye contact: Good, direct Speech: Pressured, loud, inappropriate Behavior: Intrusive, loud, child-like, anxious. Mood: Labile Affect: Constricted Thought process: Flight of ideas Thought Content: Medication, charges, snacks Cognition: A/Ox4 Insight: Poor Judgment: Poor Interventions PRN's used: Ativan 2mg, Haldol 10mg Therapeutic interventions: Provided therapeutic communication and active listening, monitored behavior provided redirecting as needed, medication administration/education/monitoring, boundary setting, maintained Q 15min safety checks. Restraints/seclusion/emergency medication: N/A Justification of Continued Inpatient Treatment: Patient is here to determine if competency can be restored for court.
[2019-10-21] MEDS: divalproex sodium 250mg tablet PO SCH ×2 (07:59→20:48)
[2019-10-21 08:00] VITALS: BP 96/47
--- NOTE | 2019-10-21 17:59 | NUR ---
Nursing Progress Note: Legal hold: 1370 Client on involuntary status to determine competency for court Report received from JAGDEEP Chaudhry with use of SBAR Why are they here: Patient deemed not to have the capacity to assist his city attorney in preparation of his defense and does not demonstrate sufficient knowledge of the court system. Therefore it was recommended he be placed in an inpatient unit designed to assist in return to competency (1370). In the past patient has been diagnosed with Bipolar I disorder, substance abuse disorder and PTSD. Patient has been in and out of [facility], [facility] and other psychiatric facilities. Upon admission patient reports hearing voices and seeing things "all the time, they never go away." he was cooperative with admission process. Assessment What has happened this shift: Pt. sleeping at beginning of shift. Pt. awake for medications and breakfast but then slept for the rest of the morning. Pt. awake at noon and listening to music on headphones. 1:1 done at bedside. Pt. denies SI/HI, A/V hallucinations. Pt. offers minimal information during interview. Pt. reports he feels good and wants to go home. In afternoon pt. was seen socializing minimally with peers and again isolated to his room. S/I, H/I: Denies. A/VH: Denies. Sleep: napped all morning ADL's: Independent Group attendance: No Were meds taken: Yes Any med S/E: None Mental Status Exam Appearance: Wearing his own clothing. Disheveled Eye contact: Fair Speech: WNL Behavior: Calm, less social today. Mood: Subdued/depressed Affect: Congruent with mood. Thought process: Linear. Thought Content: Focused on discharge Cognition: A/Ox4 Insight: Poor Judgment: Poor Interventions PRN's used: None Therapeutic interventions: Provided therapeutic communication and active listening, monitored behavior provided redirecting as needed, medication administration/education/monitoring, boundary setting, maintained Q 15min safety checks. Restraints/seclusion/emergency medication: N/A Justification of Continued Inpatient Treatment: Patient is here to determine if competency can be restored for court.
[2019-10-21] MEDS: olanzapine 10mg tablet PO SCH (20:48)
[2019-10-21 21:00] VITALS: BP 136/88
[2019-10-21] MEDS: LORazepam 1 MG tablet PO PRN (21:37)
[2019-10-21] MEDS: diphenhydrAMINE 25mg capsule PO PRN (21:37)
--- NOTE | 2019-10-22 02:49 | NUR ---
Nursing Progress Note: Legal hold: 1370 Client on involuntary status to determine competency for court Report received from TIP Castañeda with use of SBAR Why are they here: Patient deemed not to have the capacity to assist his employment attorney in preparation of his defense and does not demonstrate sufficient knowledge of the court system. Therefore it was recommended he be placed in an inpatient unit designed to assist in return to competency (1370). In the past patient has been diagnosed with Bipolar I disorder, substance abuse disorder and PTSD. Patient has been in and out of [facility], the [facility] and other psychiatric facilities. Upon admission patient reports hearing voices and seeing things "all the time, they never go away." he was cooperative with admission process. Assessment What has happened this shift: The patient was seen at bedside for 1:1. "I'm just sitting here talking to my voices." "What are they telling you?" "They're telling me to kill people...(laughs)Not really. Don't put that into your note, ok?" He changed the subject, "the court has 10 days to respond to my competency. I just want to get out of here. I want to see my mom." He then put the headphones on and walked out. He continues to be intrusive and childlike as he moves about the unit. The patient said he slept good last night. He wanted the same, but he's not agitated tonight, so he was given Ativan and Benadryl. He's been asleep all night. S/I, H/I: Denies. A/VH: Denies, but says he's been talking to his voices. Sleep: See sleep assessment. 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 Were meds taken: Yes. Any med S/E: None reported or observed Mental Status Exam Appearance: Disheveled, wears hat, headphones, and personal clothing. Eye contact: Good, direct Speech: Pressured, loud, inappropriate Behavior: Intrusive, loud, child-like, anxious. Mood: Labile Affect: Constricted Thought process: Flight of ideas Thought Content: Medication, charges, snacks Cognition: A/Ox4 Insight: Poor Judgment: Poor Interventions PRN's used: Ativan 2mg, Benadryl 50mg Therapeutic interventions: Provided therapeutic communication and active listening, monitored behavior provided redirecting as needed, medication administration/education/monitoring, boundary setting, maintained Q 15min safety checks. Restraints/seclusion/emergency medication: N/A Justification of Continued Inpatient Treatment: Patient is here to determine if competency can be restored for court.
[2019-10-22] MEDS: divalproex sodium 250mg tablet PO SCH ×2 (07:52→20:46)
[2019-10-22 08:00] VITALS: BP 122/77
--- NOTE | 2019-10-22 17:55 | NUR ---
Nursing Progress Note: Legal hold: 1370 Client on involuntary status to determine competency for court Report received from JAGDEEP Adair with use of SBAR Why are they here: Patient deemed not to have the capacity to assist his merchandise for resale purchasing agent in preparation of his defense and does not demonstrate sufficient knowledge of the court system. Therefore it was recommended he be placed in an inpatient unit designed to assist in return to competency (1370). In the past patient has been diagnosed with Bipolar I disorder, substance abuse disorder and PTSD. Patient has been in and out of [facility] and other psychiatric facilities. Upon admission patient reports hearing voices and seeing things "all the time, they never go away." he was cooperative with admission process. Assessment What has happened this shift: Pt. sleeping at beginning of shift. Pt. awake for medications and breakfast but then slept for the rest of the morning. Pt. awake at noon and listening to music on headphones. 1:1 done at bedside. Pt. denies SI/HI, but reports he hears voices that tell him, do good. Pt. offers minimal information during interview. Pt. reports he feels good and wants to go home. In afternoon pt. was seen socializing with peers. Pt. overheard getting a developmentally patient agitated and re-directed. Pt. was cooperative. S/I, H/I: Denies. A/VH: Reports hearing voices that tell him to do good. Sleep: napped all morning ADL's: Independent Group attendance: No Were meds taken: Yes Any med S/E: None Mental Status Exam Appearance: Wearing his own clothing. Disheveled Eye contact: Fair Speech: Hyperverbal this afternoon. Behavior: Mostly calm. Sleeping in morning. Social in the afternoon. Mood: euthymic becoming elated at times. Affect: Congruent with mood. Thought process: Linear. Thought Content: Focused on discharge Cognition: A/Ox4 Insight: Poor Judgment: Poor Interventions PRN's used: None Therapeutic interventions: Provided therapeutic communication and active listening, monitored behavior provided redirecting as needed, medication administration/education/monitoring, boundary setting, maintained Q 15min safety checks. Restraints/seclusion/emergency medication: N/A Justification of Continued Inpatient Treatment: Patient is here to determine if competency can be restored for court.
[2019-10-22 20:31] VITALS: BP 141/90
[2019-10-22] MEDS: olanzapine 10mg tablet PO SCH (20:46)
[2019-10-22] MEDS: LORazepam 1 MG tablet PO PRN (20:50)
[2019-10-22] MEDS: diphenhydrAMINE 25mg capsule PO PRN (20:50)
--- NOTE | 2019-10-22 23:42 | NUR ---
Nursing Progress Note: Legal hold: 1370 Client on involuntary status to determine competency for court Report received from TIP Castañeda with use of SBAR Why are they here: Patient deemed not to have the capacity to assist his claim attorney in preparation of his defense and does not demonstrate sufficient knowledge of the court system. Therefore it was recommended he be placed in an inpatient unit designed to assist in return to competency (1370). In the past patient has been diagnosed with Bipolar I disorder, substance abuse disorder and PTSD. Patient has been in and out of [facility], [facility] and other psychiatric facilities. Upon admission patient reports hearing voices and seeing things "all the time, they never go away." he was cooperative with admission process. Assessment What has happened this shift: The patient was wearing headphones and dancing down the woods at shift change. He was asked to be interviewed at bedside. He reported that he's hearing voices, but they tell him to be good, and do good things. When asked for more information, he stated, "I don't want to talk or explain anything." He walked out. Nothing more was said. The patient was compliant with HS meds, including Ativan and Benadryl to help sleep. He has been asleep since then. S/I, H/I: Denies. A/VH: Denies, but says he's been talking to his voices. Sleep: See sleep assessment. 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 Were meds taken: Yes. Any med S/E: None reported or observed Mental Status Exam Appearance: Disheveled, malodorous, headphones, and same clothes as yesterday. Eye contact: Good, direct Speech: Pressured, loud, inappropriate Behavior: Irritable, Intrusive, loud, child-like, anxious. Mood: Irritable Affect: Constricted Thought process: Flight of ideas Thought Content: Medication, charges, snacks Cognition: A/Ox4 Insight: Poor Judgment: Poor Interventions PRN's used: Ativan 2mg, Benadryl 50mg Therapeutic interventions: Provided therapeutic communication and active listening, monitored behavior provided redirecting as needed, medication administration/education/monitoring, boundary setting, maintained Q 15min safety checks. Restraints/seclusion/emergency medication: N/A Justification of Continued Inpatient Treatment: Patient is here to determine if competency can be restored for court.
[2019-10-23 07:30] VITALS: BP 125/75
[2019-10-23] MEDS: divalproex sodium 250mg tablet PO SCH ×2 (07:57→21:09)
--- NOTE | 2019-10-23 12:19 | NUR ---
Reassessment: Regular diet, great appetite, 75-100% PO intake meeting nutrient needs. No nutrition diagnosis at this time. Will continue to follow. Recommendations: 1) Continue regular diet 2) Bowel care PRN 3) Wt per rx Addendum: 10/23/19 at [address] Amended: Links added.
--- NOTE | 2019-10-23 18:00 | NUR ---
Pt. placed in physical restraint by 2 staff using BVP technique to bring him to his room after he cursed at female patient, when pt. given verbal redirection pt. spit at staff member. RN obtained order for haldol 10mg, ativan 2mg, and benadryl 50mg IM. pt. cooperated with injections. Hold lasted from 1700 - 1753.
--- NOTE | 2019-10-23 18:16 | NUR ---
Nursing Progress Note: Legal hold: 1370 Client on involuntary status to determine competency for court Report received from JAGDEEP Adair with use of SBAR Why are they here: Patient deemed not to have the capacity to assist his attorney law clerk in preparation of his defense and does not demonstrate sufficient knowledge of the court system. Therefore it was recommended he be placed in an inpatient unit designed to assist in return to competency (1370). In the past patient has been diagnosed with Bipolar I disorder, substance abuse disorder and PTSD. Patient has been in and out of [facility], [facility], [facility] and other psychiatric facilities. Upon admission patient reports hearing voices and seeing things "all the time, they never go away." he was cooperative with admission process. Assessment What has happened this shift: Pt. sleeping at beginning of shift. Pt. awake for medications and breakfast but then slept for the rest of the morning. Pt. awake at noon and listening to music on headphones. 1:1 done at bedside. Pt. denies SI/HI, but reports he hears voices that tell him, do good. Pt. states, I feel a little depressed When RN asked pt. what was causing this, pt. states, Never mind, I dont want to talk about it. Im good. Pt. reports he feels good and wants to go home. In afternoon pt. was seen socializing with peers. Pt. overheard talking on the phone stating, yeah dad, you get her naked. RN informed pt. this was inappropriate and pt. stated, Its not for me! Pt. was redirectable. At dinner pt. began to curse at a female patient, when given verbal redirection by staff, pt. spit on staff member. Pt. put in a physical hold using BVP technique and escorted to his room where he cooperated and received Haldol 10mg, Ativan 2mg, and Benadryl 50mg IM. S/I, H/I: Denies. A/VH: Pt. reports hearing voices that tell him to do good. Sleep: napped all morning ADL's: Independent. Group attendance: No Were meds taken: Yes Any med S/E: None Mental Status Exam Appearance: Wearing his own clothing. Disheveled Eye contact: Fair Speech: Hyper verbal with some pressured speech,. Behavior: Sleeping in morning. Social in the afternoon becoming loud and boisterous at times needing redirection. Mood: Pt. reports he was a little sad. Pt. observed being euthymic, and very excitable. Affect: Bright. Thought process: Linear. Thought Content: Focused on discharge Cognition: A/Ox4 Insight: Poor Judgment: Poor Interventions PRN's used: Haldol 10mg, Ativan 2mg, and Benadryl 50mg IM Therapeutic interventions: Provided therapeutic communication and active listening, monitored behavior provided redirecting as needed, medication administration/education/monitoring, boundary setting, maintained Q 15min safety checks. Restraints/seclusion/emergency medication: N/A Justification of Continued Inpatient Treatment: Patient is here to determine if competency can be restored for court.
[2019-10-23 19:28] VITALS: BP 117/93
[2019-10-23] MEDS: olanzapine 10mg tablet PO SCH (21:09)
[2019-10-23] MEDS: LORazepam 1 MG tablet PO PRN (21:42)
--- NOTE | 2019-10-24 01:43 | NUR ---
Nursing Progress Note: Legal hold: 1370 Client on involuntary status to determine competency for court Report received from TIP Aranad with use of SBAR Why are they here: Patient deemed not to have the capacity to assist his playground director in preparation of his defense and does not demonstrate sufficient knowledge of the court system. Therefore it was recommended he be placed in an inpatient unit designed to assist in return to competency (1370). In the past patient has been diagnosed with Bipolar I disorder, substance abuse disorder and PTSD. Patient has been in and out of [facility], [facility] and other [facility] facilities. Upon admission patient reports hearing voices and seeing things "all the time, they never go away." he was cooperative with admission process. Assessment What has happened this shift: Pt was in his room during shift change and later came out. Appeared calm and somewhat sedated. Later on he came out of his room and spent some times in community room. He was observed interacting appropriately with other patients. Pt' behavior was less intrusive and no more agitation was observed. He was cooperative during 1:1 physical assessment and took all his meds. He denies any hallucinations and appears somewhat irritable with minimal responses to questions being asked. Before going to bed, pt requested Ativan again as he appears somewhat manic and restless. This was given with good effect as he retires to bed and is not observed out his room for the remainder of the night. S/I, H/I: Denies. A/VH: Denies Sleep: Currently sleeping, see sleep assessment. ADL's: Independent Group attendance: restaurant shift supervisor no group. Were meds taken: Yes. Any med S/E: None reported or observed Mental Status Exam Appearance: Disheveled, wearing personal clothing Eye contact: Good, direct Speech: Pressured, loud Behavior: Cooperative, Irritable, less intrusive today, somewhat manic Mood: Irritable, appears somewhat anxious Affect: Congruent with mood Thought process: Flight of ideas Thought Content: Medication, snacks Cognition: A/Ox4 Insight: Poor Judgment: Poor Interventions PRN's used: Ativan 2mg Therapeutic interventions: Provided therapeutic communication and active listening, monitored behavior provided redirecting as needed, medication administration/education/monitoring, boundary setting, maintained Q 15min safety checks. Restraints/seclusion/emergency medication: N/A Justification of Continued Inpatient Treatment: Patient is here to determine if competency can be restored for court.
[2019-10-24] MEDS: divalproex sodium 250mg tablet PO SCH ×2 (08:00→20:36)
--- NOTE | 2019-10-24 17:12 | NUR ---
Nursing Progress Note: Legal hold: 1370 Client on involuntary status for GD Report received from nurse with use of SBAR: JAGDEEP Adair Why are they here: Patient deemed not to have the capacity to assist his assistant prosecuting attorney in preparation of his defense and does not demonstrate sufficient knowledge of the court system. Therefore it was recommended he be placed in an inpatient unit designed to assist in return to competency (1370). In the past, patient has been diagnosed with Bipolar I disorder, substance abuse disorder, and PTSD. Patient has been in and out of [facility], the shelter and other psychiatric facilities. Upon admission patient reports hearing voices and seeing things "all the time, they never go away." Assessment What has happened this shift: Received patient asleep in bed at the beginning of the shift, awoke to obtain V/S and administer AM medications. Pt. presents as agitated and resistive to care, he refuses V/S, physical assessment, or medications. He states, "I refuse! I already told my doctor that! Take me back to shelter!" Medication education provided, however pt. continued t refuse stated, "It's a waste of medication, they don't do anything for me!" This bid writer continued to provide education to pt. regarding refusing medication and how this will affect his stay on unit, and not be in his favor r/t to his court ordered stay. Pt. then reluctantly accepted medication, however continued to refuse assessment. Attempted to complete 1:1 at bedside, however pt. very fatigued and reported he wanted to return back to sleep. Pt. remained in bed throughout most of the day, however was up interacting appropriately with others in the afternoon. He continues to become loud, impulsive, and intrusive at times, but is able to be redirected. S/I, H/I: Unable to assess A/VH: Unable to assess, does not appear internally preoccupied Sleep: Pt. reports he slept well ADL's: Requires redirection from staff Group attendance: N/A Were meds taken: Yes Any med S/E: None Mental Status Exam Appearance: Hair/briseno disheveled, wearing a hooded sweatshirt with quintana pulled over head some of the time Eye contact: Fair Behavior: Resistive to care, agitated, restless, and impulsive/intrusive at times Speech: WNL, child-like (uses street language) Mood: Agitated, guarded Affect: Labile Thought process: Unable to assess Thought Content: Preoccupation with refusal of care Cognition: A&O Insight: Poor Judgment: Poor Interventions PRN's used: None Therapeutic interventions: Ensured contract for safety, provided clear and simple instructions, monitored behavior and need for intervention, provided medication education, provided redirection as needed, and maintained Q 15 min safety checks. Restraints/seclusion/emergency medication: N/A Justification of Continued Inpatient Treatment: Pt. continues to require medication adjustments and a safe and supportive environment to restore competency while awaiting court.
[2019-10-24 19:53] VITALS: BP 132/84
[2019-10-24] MEDS: olanzapine 10mg tablet PO SCH (20:36)
[2019-10-24] MEDS: LORazepam 1 MG tablet PO PRN (21:43)
--- NOTE | 2019-10-25 00:49 | NUR ---
Nursing Progress Note: Legal hold: 1370 Client on involuntary status to determine competency for court Report received from TIP Aranda with use of SBAR Why are they here: Patient deemed not to have the capacity to assist his attorney recruiter in preparation of his defense and does not demonstrate sufficient knowledge of the court system. Therefore it was recommended he be placed in an inpatient unit designed to assist in return to competency (1370). In the past patient has been diagnosed with Bipolar I disorder, substance abuse disorder and PTSD. Patient has been in and out of [facility], [facility] and other psychiatric facilities. Upon admission patient reports hearing voices and seeing things "all the time, they never go away." he was cooperative with admission process. Assessment What has happened this shift: Pt was visible in the unit during shift change on the phone with his mom. He was observed in TV room interacting with other patients and for the most part appears to be appropriate. Not as intrusive or restless today. Pt was cooperative during 1:1 physical assessment and took all his HS meds without any issues. He states that he just slept all day and is basically just playing the waiting game. When asked what he was waiting for, he states waiting for my court date. Pt denies any A/VH, and did not make any delusional statements. He requested Ativan and again states that he just wants to go to sleep. He spent some more time in recreation room drawing before going to sleep. S/I, H/I: Denies. A/VH: Denies Sleep: Currently sleeping, see sleep assessment. ADL's: Independent Group attendance: dental floss packer no group. Were meds taken: Yes. Any med S/E: None reported or observed Mental Status Exam Appearance: Disheveled, wearing personal clothing Eye contact: Good, direct Speech: Pressured, loud Behavior: Cooperative, appropriate, less intrusive Mood: "I'm alright." pt appears somewhat sad Affect: Congruent with mood Thought process: Flight of ideas Thought Content: Medication, snacks, court Cognition: A/Ox4 Insight: Fair Judgment: Poor Interventions PRN's used: Ativan 2mg Therapeutic interventions: Provided therapeutic communication and active listening, monitored behavior provided redirecting as needed, medication administration/education/monitoring, boundary setting, maintained Q 15min safety checks. Restraints/seclusion/emergency medication: N/A Justification of Continued Inpatient Treatment: Patient is here to determine if competency can be restored for court.
[2019-10-25 08:00] VITALS: BP 109/63
[2019-10-25] MEDS: divalproex sodium 250mg tablet PO SCH ×2 (08:31→20:32)
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
[2019-10-25 20:19] VITALS: BP 125/79
[2019-10-25] MEDS: olanzapine 10mg tablet PO SCH (20:32)
[2019-10-25] MEDS: LORazepam 1 MG tablet PO PRN (20:52)
[2019-10-25] MEDS: haloperidol 5mg tablet PO PRN (22:08)
--- NOTE | 2019-10-26 00:40 | NUR ---
Nursing Progress Note: Legal hold: 1370 Client on involuntary status to determine competency for court Report received from TIP Alcantara with use of SBAR Why are they here: Patient deemed not to have the capacity to assist his workers compensation defense attorney in preparation of his defense and does not demonstrate sufficient knowledge of the court system. Therefore it was recommended he be placed in an inpatient unit designed to assist in return to competency (1370). In the past patient has been diagnosed with Bipolar I disorder, substance abuse disorder and PTSD. [facility] and other [facility] facilities. Upon admission patient reports hearing voices and seeing things "all the time, they never go away." he was cooperative with admission process. Assessment What has happened this shift: Pt was visible in the unit, he interacts with other patients appropriately for the most part but continues to be intrusive and have child like behavior. PT refused most of his physical assessment and when asked mental health questions he evaded the question and would answer with something unrelated. Pt paces the halls for a while with his headphones on stating I want to go home. Appeared to be agitated. He took all his HS meds but states that he doesnt want to take them anymore however he did end up taking all of them. Pt talked on the phone with his father and grandmother, and the conversations appeared to be going well as he remained calm. He requested Ativan as he was feeling more agitated. This was given with minimal effectiveness as pt states about an hour later that he is still feeling agitated and unable to sleep. Haldol 10mg was given. Pt retired to his room and attempted to fall asleep. Later on pt was heard screaming, stating that he couldn't sleep. Provided pt a snack encouraged pt to attempt to go to sleep and this appeared to have helped. Will continue to monitor. S/I, H/I: Denies. A/VH: Denies Sleep: Pt had some trouble sleeping, he currently sleeping, see sleep assessment. ADL's: Independent Group attendance: masonry supervisor no group. Were meds taken: Yes. Any med S/E: None reported or observed Mental Status Exam Appearance: Disheveled, wearing personal clothing Eye contact: Good, direct Speech: Pressured, loud Behavior: Child like, somewhat agitated, intrusive Mood: Labile Affect: Congruent with mood Thought process: Flight of ideas Thought Content: Medication, snacks, family, not being able to sleep Cognition: A/Ox4 Insight: Fair Judgment: Poor Interventions PRN's used: Ativan 2mg, Haldol 10mg Therapeutic interventions: Provided therapeutic communication and active listening, monitored behavior provided redirecting as needed, medication administration/education/monitoring, boundary setting, maintained Q 15min safety checks. Restraints/seclusion/emergency medication: N/A Justification of Continued Inpatient Treatment: Patient is here to determine if competency can be restored for court.
[2019-10-26] MEDS: divalproex sodium 250mg tablet PO SCH ×2 (07:51→20:44)
[2019-10-26 08:00] VITALS: BP 91/46
--- NOTE | 2019-10-26 12:26 | NUR ---
Nurse Progress Note for [facility]-Shift RN received report from TERELL Clark. Pt. awake at start of shift. Pt. awake for breakfast and took medications and then went back to sleep. 1:1 assessment endorsed to Kailash GANNON. SBAR report given and Kailash GANNON assumed care of pt.
--- NOTE | 2019-10-26 16:26 | NUR ---
Nursing Progress Note Legal hold: 1370 Client on involuntary status for GD Report received from RN with use of SBAR Why are they here: Patient deemed not to have the capacity to assist his regulatory attorney in preparation of his defense and does not demonstrate sufficient knowledge of the court system. Therefore it was recommended he be placed in an inpatient unit designed to assist in return to competency (1370). In the past, patient has been diagnosed with Bipolar I disorder, substance abuse disorder, and PTSD. Patient has been in and out of [facility], the [facility] home and other psychiatric facilities. Upon admission patient reports hearing voices and seeing things "all the time, they never go away." Assessment What has happened this shift: Received Pt in bed sleeping w/o distress at change of shift. He was cooperative with vital signs and medication administration. He napped following breakfast. Pt did not engage a lot in assessments in AM per report but when he woke in the afternoon he was able to engage. He walked halls with headphones and went out on patio break. Pt spent time in his room, group room and walking in the halls. S/I, H/I: Denies A/VH: Denies Sleep: Napped in AM ADL's: Requires prompting Group attendance: No Were meds taken: Yes Any med S/E: None reported or observed Mental Status Exam Appearance: Disheveled Eye contact: Indirect Behavior: Resistant to care, impulsive and intrusive at times Speech: Normal rate and rhythm, childlike responses Mood: Guarded Affect: Labile Thought process: Disorganized Thought Content: Concerned about going to [facility] Cognition: A&O Insight: Poor Judgment: Poor Interventions PRN's used: None Therapeutic interventions: Ensured contract for safety, provided clear and simple instructions, monitored behavior and need for intervention, provided medication education, monitored for side effects and efficacy, provided redirection as needed, and maintained Q 15 min safety checks. Restraints/seclusion/emergency medication: N/A Justification of Continued Inpatient Treatment: Pt. continues to require medication adjustments and a safe and supportive environment to restore competency while awaiting court.
[2019-10-26] MEDS: olanzapine 10mg tablet PO SCH (20:45)
[2019-10-26] MEDS: LORazepam 1 MG tablet PO PRN (20:49)
[2019-10-27] MEDS: haloperidol 5mg tablet PO PRN ×2 (00:03→19:07)
--- NOTE | 2019-10-27 05:21 | NUR ---
Nursing Progress Note Legal hold: 1370 Client on involuntary status for GD Report received from TIP Alcantara with use of SBAR Why are they here: Patient deemed not to have the capacity to assist his commercial litigation attorney in preparation of his defense and does not demonstrate sufficient knowledge of the court system. Therefore it was recommended he be placed in an inpatient unit designed to assist in return to competency (1370). In the past, patient has been diagnosed with Bipolar I disorder, substance abuse disorder, and PTSD. Patient has been in and out of [facility], [facility] and other psychiatric facilities. Upon admission patient reports hearing voices and seeing things "all the time, they never go away." Assessment What has happened this shift: Patient socializing with staff and peers at the beginning of shift. He is compliant with medication and remains resistive to assessments. Continues to voice concern for going to penitentiary. PRN Ativan provided upon request with positive effect. Patient showered this shift and clothing washed. He participated in HS snack and continued to talk with peers in group room until group room closed for the evening. Patient over heard shouting from his bedroom. He reported "I'm just tired and can't get to sleep." PRN Haldol provided with positive effect. S/I, H/I: Denies A/VH: Denies Sleep: Refer to sleep assessment ADL's: Independent; requires prompting at times Group attendance: No groups this shift Were meds taken: Yes Any med S/E: None reported or observed Mental Status Exam Appearance: Showered, green unit scrubs Eye contact: Indirect Behavior: Resistant to care, impulsive and intrusive at times Speech: Normal rate and rhythm, childlike responses Mood: Guarded, anxious Affect: Labile Thought process: Disorganized Thought Content: Concerned about going to penitentiary Cognition: A&O Insight: Poor Judgment: Poor Interventions PRN's used: Ativan and Haldol Therapeutic interventions: Ensured contract for safety, provided clear and simple instructions, monitored behavior and need for intervention, provided medication education, monitored for side effects and efficacy, provided redirection as needed, and maintained Q 15 min safety checks. Restraints/seclusion/emergency medication: N/A Justification of Continued Inpatient Treatment: Pt. continues to require medication adjustments and a safe and supportive environment to restore competency while awaiting court.
[2019-10-27 07:30] VITALS: BP 142/79
[2019-10-27] MEDS: divalproex sodium 250mg tablet PO SCH ×2 (08:05→20:02)
--- NOTE | 2019-10-27 17:39 | NUR ---
Nursing Progress Note Legal hold: 1370 Client on involuntary status for GD Report received from TERELL Clark with use of SBAR Why are they here: Patient deemed not to have the capacity to assist his transactional attorney in preparation of his defense and does not demonstrate sufficient knowledge of the court system. Therefore it was recommended he be placed in an inpatient unit designed to assist in return to competency (1370). In the past, patient has been diagnosed with Bipolar I disorder, substance abuse disorder, and PTSD. Patient has been in and out of [facility], the intermediate and other psychiatric facilities. Upon admission patient reports hearing voices and seeing things "all the time, they never go away." Assessment What has happened this shift: Pt. asleep at start of shift. Pt. awake for medications and breakfast. Pt. took all medications and ate all meals in community room. Pt. went back to bed after breakfast and slept remainder of morning. Pt. isolated to his room after lunch but came out for movie and soda in community room. Pt. denies SI/HI. Pt. reports hearing auditory hallucinations that tell him to do good. Pt. states, Im fine, pt. gives limited information during 1:1 assessment. Pt. is calm and cooperative. Around dinner time pt. became excitable, listening to headphones and singing and pacing aggressively up and down the halls. Pt. laughing and yelling at other patients. Pt. calmed down when food arrived. S/I, H/I: Denies A/VH: Reports hearing voices that tell him to do good. Sleep: Napped in AM ADL's: Requires prompting Group attendance: No group Were meds taken: Yes Any med S/E: None reported or observed Mental Status Exam Appearance: Disheveled, wearing green scrubs Eye contact: Indirect Behavior: Calm and cooperative, but isolates to his room most of the day. Speech: Clear, minimal response when interviewed. Mood: Euthymic but guarded. Affect: Congruent with mood Thought process: Disorganized Thought Content: Difficult to as Cognition: A&O Insight: Poor Judgment: Poor Interventions PRN's used: None Therapeutic interventions: Ensured contract for safety, provided clear and simple instructions, monitored behavior and need for intervention, provided medication education, monitored for side effects and efficacy, provided redirection as needed, and maintained Q 15 min safety checks. Restraints/seclusion/emergency medication: N/A Justification of Continued Inpatient Treatment: Pt. continues to require medication adjustments and a safe and supportive environment to restore competency while awaiting court.
[2019-10-27] MEDS: diphenhydrAMINE 25mg capsule PO PRN (19:07)
[2019-10-27] MEDS: LORazepam 1 MG tablet PO PRN (19:07)
[2019-10-27] MEDS: olanzapine 10mg tablet PO SCH (20:02)
[2019-10-27 20:08] VITALS: BP 145/77
--- NOTE | 2019-10-28 04:22 | NUR ---
Nursing Progress Note Legal hold: 1370 Client on involuntary status for GD Report received from Quinton WHELAN with use of SBAR Why are they here: Patient deemed not to have the capacity to assist his securities attorney in preparation of his defense and does not demonstrate sufficient knowledge of the court system. Therefore it was recommended he be placed in an inpatient unit designed to assist in return to competency (1370). In the past, patient has been diagnosed with Bipolar I disorder, substance abuse disorder, and PTSD. Patient has been in and out of [facility], [facility] and other psychiatric facilities. Upon admission patient reports hearing voices and seeing things "all the time, they never go away." Assessment What has happened this shift: Pt. Up on unit hypomanic. Moving constantly at times touching other pts. He was at one point crawling on hands and knees barking like a dog. Given oral B52 wihich pt took willingly. Behavior calmed down a little. Pt took all HS meds. Went to sleep. Pt is easily redirected most of the time. . S/I, H/I: Denies A/VH: Reports hearing voices Sleep:Asleep at this time ADL's: Requires prompting Group attendance: No group Were meds taken: Yes Any med S/E: None reported or observed Mental Status Exam Appearance: Disheveled, wearing green scrubs Eye contact: Indirect Behavior: Hypomanic but cooperative Speech: Clear,tangential Mood: "good" Affect: Bright Thought process: Disorganized Thought Content: Tangential Cognition: A&O Insight: Poor Judgment: Poor Interventions PRN's used: Haldol Benadryl. and Ativan Therapeutic interventions: Ensured contract for safety, provided clear and simple instructions, monitored behavior and need for intervention, provided medication education, monitored for side effects and efficacy, provided redirection as needed, and maintained Q 15 min safety checks. Restraints/seclusion/emergency medication: N/A Justification of Continued Inpatient Treatment: Pt. continues to require medication adjustments and a safe and supportive environment to restore competency while awaiting court.
[2019-10-28 08:00] VITALS: BP 86/37
[2019-10-28] MEDS: divalproex sodium 250mg tablet PO SCH ×2 (08:18→20:05)
[2019-10-28 11:00] VITALS: BP 157/69
--- NOTE | 2019-10-28 17:47 | NUR ---
Nursing Progress Note Legal hold: 1370 Client on involuntary status for GD Report received from CRN with use of SBAR Why are they here: Patient deemed not to have the capacity to assist his title attorney in preparation of his defense and does not demonstrate sufficient knowledge of the court system. Therefore it was recommended he be placed in an inpatient unit designed to assist in return to competency (1370). In the past, patient has been diagnosed with Bipolar I disorder, substance abuse disorder, and PTSD. Patient has been in and out of [facility], [facility] and other psychiatric facilities. Upon admission patient reports hearing voices and seeing things "all the time, they never go away." Assessment What has happened this shift: Pt. asleep at start of shift. Pt up to the group room for all meals. Compliant with medication administration. Pt cooperative with assessment. He denies depression, anxiety, and SI. He indicates he has AH saying, voices say to do good. Pt napped during the morning. He was up socializing during the afternoon. He is intrusive and loud with staff and patients. He was friendly and talkative. He indicated that he slept well last night. S/I, H/I: Denies A/VH: Reports hearing voices that tell him to do good. Sleep: Napped in AM ADL's: Requires prompting Group attendance: No group Were meds taken: Yes Any med S/E: None reported or observed Mental Status Exam Appearance: Disheveled, wearing white sweat pants and white tank top Eye contact: Indirect Behavior: Intrusive, but friendly Speech: Loud and hyperverbal at times Mood: Euthymic Affect: Congruent with mood Thought process: Disorganized Thought Content: Talking about movies he likes Cognition: A&O Insight: Poor Judgment: Poor Interventions PRN's used: None Therapeutic interventions: Ensured contract for safety, provided clear and simple instructions, monitored behavior and need for intervention, provided medication education, monitored for side effects and efficacy, provided redirection as needed, and maintained Q 15 min safety checks. Restraints/seclusion/emergency medication: N/A Justification of Continued Inpatient Treatment: Pt. continues to require medication adjustments and a safe and supportive environment to restore competency while awaiting court.
[2019-10-28] MEDS: olanzapine 10mg tablet PO SCH (20:05)
[2019-10-28] MEDS: LORazepam 1 MG tablet PO PRN (20:05)
[2019-10-28 20:19] VITALS: BP 132/89
--- NOTE | 2019-10-29 00:01 | NUR ---
Nursing Progress Note Legal hold: 1370 Client on involuntary status for GD Report received from Quinton WHELAN with use of SBAR Why are they here: Patient deemed not to have the capacity to assist his assistant prosecuting attorney in preparation of his defense and does not demonstrate sufficient knowledge of the court system. Therefore it was recommended he be placed in an inpatient unit designed to assist in return to competency (1370). In the past, patient has been diagnosed with Bipolar I disorder, substance abuse disorder, and PTSD. Patient has been in and out of [facility], the intermediate and other psychiatric facilities. Upon admission patient reports hearing voices and seeing things "all the time, they never go away." Assessment What has happened this shift: Pt active on unit all evening. pt hyper and intrusive at times. Pt is very social with other pt's and staff but can be loud when socializing. Pt had to be asked to settle down multiple times this evening, but pt is generally easy to redirect. Pt took all HS meds. Went to sleep but was restless until approx midnight. . S/I, H/I: Denies A/VH: Denies Sleep:Asleep at this time ADL's: Requires prompting Group attendance: No group Were meds taken: Yes Any med S/E: None reported or observed Mental Status Exam Appearance: Disheveled, wearing dirty green scrubs Eye contact: Indirect Behavior: Hypomanic but cooperative Speech: Clear,tangential Mood: "good" Affect: Bright Thought process: Disorganized Thought Content: Tangential Cognition: A&O Insight: Poor Judgment: Poor Interventions PRN's used:Ativan Therapeutic interventions: Ensured contract for safety, provided clear and simple instructions, monitored behavior and need for intervention, provided medication education, monitored for side effects and efficacy, provided redirection as needed, and maintained Q 15 min safety checks. Restraints/seclusion/emergency medication: N/A Justification of Continued Inpatient Treatment: Pt. continues to require medication adjustments and a safe and supportive environment to restore competency while awaiting court.
[2019-10-29 07:00] VITALS: BP 117/53
[2019-10-29] MEDS: divalproex sodium 250mg tablet PO SCH ×2 (08:09→20:21)
--- NOTE | 2019-10-29 17:32 | NUR ---
Nursing Progress Note Legal hold: 1370 Client on involuntary status for GD Report received from CRN with use of SBAR Why are they here: Patient deemed not to have the capacity to assist his coke wheeler in preparation of his defense and does not demonstrate sufficient knowledge of the court system. Therefore it was recommended he be placed in an inpatient unit designed to assist in return to competency (1370). In the past, patient has been diagnosed with Bipolar I disorder, substance abuse disorder, and PTSD. Patient has been in and out of [facility], the [facility] and other psychiatric facilities. Upon admission patient reports hearing voices and seeing things "all the time, they never go away." Assessment What has happened this shift: Patient sleeping at shift change. Patient awakens for breakfast then goes back to bed. Patient sleeps on and off all day, and wakes up in the afternoon to start his day. Patient appears to be in a good mood, joking around with staff and peers. Patient takes medications without incident. S/I, H/I: Denies A/VH: A/H stating "Do good". Sleep: 5.5 hrs NOC, napped during daytime. ADL's: Requires prompting Group attendance: No Were meds taken: Yes Any med S/E: None reported or observed Mental Status Exam Appearance: Disheveled male wearing street clothes. Eye contact: Good. Behavior: Fatigued, sleeping. Speech: Clear, loud at times. Mood: Euthymic Affect: Congruent with mood Thought process: Disorganized Thought Content: Sleeping and having fun on unit. Cognition: A&O Insight: Poor Judgment: Poor Interventions PRN's used: None Therapeutic interventions: Ensured contract for safety, provided clear and simple instructions, monitored behavior and need for intervention, provided medication education, monitored for side effects and efficacy, provided redirection as needed, and maintained Q 15 min safety checks. Restraints/seclusion/emergency medication: N/A Justification of Continued Inpatient Treatment: Pt. continues to require medication adjustments and a safe and supportive environment to restore competency while awaiting court.
[2019-10-29 20:08] VITALS: BP 131/82
[2019-10-29] MEDS: olanzapine 10mg tablet PO SCH (20:21)
--- NOTE | 2019-10-30 00:27 | NUR ---
Nursing Progress Note Legal hold: 1370 Client on involuntary status for GD Report received from Quinton WHELAN with use of SBAR Why are they here: Patient deemed not to have the capacity to assist his layout mechanic in preparation of his defense and does not demonstrate sufficient knowledge of the court system. Therefore it was recommended he be placed in an inpatient unit designed to assist in return to competency (1370). In the past, patient has been diagnosed with Bipolar I disorder, substance abuse disorder, and PTSD. Patient has been in and out of [facility], [facility] and other psychiatric facilities. Upon admission patient reports hearing voices and seeing things "all the time, they never go away." Assessment What has happened this shift: Pt active on unit all evening. pt hyper but friendly with staff and other pt's. Pt spent most of the evening either socializing in the woods or watching tv in the group room. Pt did make some nonsensical statements at several times during the evening but was never seen responding to internal stimuli. Pt took all HS meds. Went to sleep, complained once of restless legs but it didn't keep him from sleeping. . S/I, H/I: Denies A/VH: Denies Sleep:Asleep at this time ADL's: Requires prompting Group attendance: No group Were meds taken: Yes Any med S/E: None reported or observed Mental Status Exam Appearance: Disheveled, wearing dirty green scrubs Eye contact: good Behavior: Hypomanic but cooperative Speech: Clear,tangential Mood: "I'm good dawg" Affect: Bright Thought process: Disorganized Thought Content: Tangential Cognition: A&O Insight: Poor Judgment: Poor Interventions PRN's used:Ativan Therapeutic interventions: Ensured contract for safety, provided clear and simple instructions, monitored behavior and need for intervention, provided medication education, monitored for side effects and efficacy, provided redirection as needed, and maintained Q 15 min safety checks. Restraints/seclusion/emergency medication: N/A Justification of Continued Inpatient Treatment: Pt. continues to require medication adjustments and a safe and supportive environment to restore competency while awaiting court.
[2019-10-30 07:52] VITALS: BP 118/76
[2019-10-30] MEDS: divalproex sodium 250mg tablet PO SCH ×2 (08:36→21:00)
--- NOTE | 2019-10-30 10:00 | NUR ---
Group Therapy: Process Group This Clinicians goal for this process group were as follows: (1) Introduce and provide psychoeducation on Marie ABC method. (2) Continue psychoeducation and discussion on different cognitive distortions. (3) Introduce the concept of thought-stopping, and thought-reframing as an interventions to stop unhelpful/irrational thinking processes. (4) Practice examples of thought-reframing using Marie ABC method. (5) Process Clients thoughts and reflections on this topic within the group milieu. Patient asked to be, "Skipped," by this Clinician when he was asked about his levels of depression from 1-10. Hence, he did not provide answers. Patient presented as disruptive within the group milieu AEB cross-talk during the group, talking over other group members, and beginning side discussions that were irrelevant to the topic at hand. However, Patient left the group without being asked, or prompted approximately 5-10 minutes into group and did not return to the group milieu. Zaki Arshad MA, MARI Addendum: 10/30/19 at 1135 by Zaki Arshad SS Amended: Links added.
--- NOTE | 2019-10-30 14:27 | NUR ---
Reassessment: Pt continues with 75-100% PO intake meeting nutrient needs. LBM 10/27. Pt with PRN bowel care available. No nutrition intervention warranted at this time. Will continue to follow. Recommendations: 1) Continue regular diet 2) Bowel care PRN; monitor need for additional 3) Wt per rx Addendum: 10/30/19 at [address] Amended: Links added.
--- NOTE | 2019-10-30 17:28 | NUR ---
Nursing Progress Note Legal hold: 1370 Client on involuntary court hold for competency needs Report received from TIP Adair with use of SBAR Why are they here: Patient deemed not to have the capacity to assist his staff attorney in preparation of his defense and does not demonstrate sufficient knowledge of the court system. Therefore it was recommended he be placed in an inpatient unit designed to assist in return to competency (1370). In the past, patient has been diagnosed with Bipolar I disorder, substance abuse disorder, and PTSD. Patient has been in and out of [facility], the [facility] and other psychiatric facilities. Upon admission patient reports hearing voices and seeing things "all the time, they never go away." Assessment What has happened this shift: Patient awake and walking in the halls at shift change. He was singing, Sonia cake, Sonia back. He was compliant with medication administration and cooperative with assessment. Pt denies depression and SI. When asked about AH he stated, voices telling me to do good all the time. He indicates he feels good. He did not attend AM group. The pt napped during the morning. Pt up socializing with other patients and staff throughout the day. He is intrusive at times. He is exuberant and loud. Behaviors seem to be attention-seeking, but not harmful. Pt appears childlike in his desire for staffs attention. S/I, H/I: Denies A/VH: Endorses AH saying they say, do good. Sleep: Napped during daytime. ADL's: Requires prompting Group attendance: No Were meds taken: Yes Any med S/E: None reported or observed Mental Status Exam Appearance: Disheveled hair and clothing Eye contact: Direct Behavior: Energetic, loud, attention-seeking Speech: Normal rate and rhythm, but loud at times Mood: Euthymic Affect: Congruent with mood Thought process: Disorganized Thought Content: Thinking about doing good Cognition: A&O Insight: Poor Judgment: Poor Interventions PRN's used: None Therapeutic interventions: Ensured contract for safety, provided clear and simple instructions, monitored behavior and need for intervention, provided medication education, monitored for side effects and efficacy, provided redirection as needed, and maintained Q 15 min safety checks. Restraints/seclusion/emergency medication: N/A Justification of Continued Inpatient Treatment: Pt. continues to require medication adjustments and a safe and supportive environment to restore competency while awaiting court.
[2019-10-30 20:12] VITALS: BP 121/75
[2019-10-30] MEDS: olanzapine 10mg tablet PO SCH (20:59)
[2019-10-30] MEDS: LORazepam 1 MG tablet PO PRN (21:00)
--- NOTE | 2019-10-31 03:06 | NUR ---
Nursing Progress Note Legal hold: 137[address] Client on involuntary court hold for competency needs Report received from JAGDEEP Aranda with use of SBAR Why are they here: Patient deemed not to have the capacity to assist his tax attorney in preparation of his defense and does not demonstrate sufficient knowledge of the court system. Therefore it was recommended he be placed in an inpatient unit designed to assist in return to competency (1370). In the past, patient has been diagnosed with Bipolar I disorder, substance abuse disorder, and PTSD. Patient has been in and out of [facility], [facility] and other psychiatric facilities. Upon admission patient reports hearing voices and seeing things "all the time, they never go away." Assessment What has happened this shift: Patient walking halls at shift change. Patient presents in his hypomanic mood, but remains cooperative. Patient continues to be intrusive with peers and staff, but is redirectable. Patient states "hey I am out of here in a couple of days." "I hope they let me go, I want out of here." (Patient is referring to his upcoming court date). Patient is cooperative with 1:1 and medications. Patient requested an Ativan with his night meds. Patient later wanted a "Haldol, I can't sleep." This content writer explained that he recently received Ativan and instead patient was given a snack with milk. Patient later was observed sleeping soundly. S/I, H/I: Patient denies both. A/VH: Patient states "maybe" and laughs. Sleep: Received Ativan with HS medication. See Sleep Assessment for total hours. ADL's: Requires prompting Group attendance: bottle line worker,no group. Were meds taken: Yes, without incident. Any med S/E: Patient denies, none observed. Mental Status Exam Appearance: Clean, disheveled, wearing personal clothing. Eye contact: Good. Behavior: Hypomanic, loud, attention-seeking Speech: Clear, hyperverbal, loud Mood: Euthymic Affect: Congruent with mood Thought process: Disorganized Thought Content: "I want outta here." Cognition: A&Ox3 Insight: Poor Judgment: Poor Interventions PRN's used: Ativan. Therapeutic interventions: 1:1 therapeutic assessment, medication administration/education/monitoring, limit setting, provided redirection as needed, provided clear, simple instructions, Q15 min. safety checks. Restraints/seclusion/emergency medication: N/A Justification of Continued Inpatient Treatment: Patient continues to require medication adjustments and a safe and supportive environment to restore competency while awaiting court.
[2019-10-31 07:14] VITALS: BP 111/55
[2019-10-31] MEDS: divalproex sodium 250mg tablet PO SCH ×2 (08:37→20:54)
[2019-10-31] MEDS: LORazepam 1 MG tablet PO PRN ×2 (15:04→21:05)
--- NOTE | 2019-10-31 15:38 | NUR ---
Nursing Progress Note: Legal hold: 1370 Client on involuntary status for GD Report received from nurse with use of SBAR: JAGDEEP Adair Why are they here: Patient deemed not to have the capacity to assist his combination window installer in preparation of his defense and does not demonstrate sufficient knowledge of the court system. Therefore it was recommended he be placed in an inpatient unit designed to assist in return to competency (1370). In the past, patient has been diagnosed with Bipolar I disorder, substance abuse disorder, and PTSD. Patient has been in and out of [facility], the intermediate and other psychiatric facilities. Upon admission patient reports hearing voices and seeing things "all the time, they never go away." Assessment What has happened this shift: Received patient asleep in bed at the beginning of the shift, he awoke for breakfast and then returned to bed. Pt. was compliant with medications and physical assessment. 1:1 completed at bedside, pt. denies any depression, anxiety, S/I, or H/I. However he endorses A/BAIG, states, "They tell me good things!" He reports that he is excited about court tomorrow and is hoping that he will be released. Pt. remained in bed until early afternoon and then was up pacing the hallway, wearing headphones, and attempting to interact with others (however pt. presents with maturity level and can be intrusive/impulsive with others). Pt's behavior continued to escalate through the afternoon, and he reported that he was bored and having difficulty fining ways to occupy his time. His behavior appeared to become increasingly anxious, impulsive, intrusive, hypomanic, and speech racing and tangental. PRN Ativan administered with effectiveness, will continue to monitor. Pt. remained up in the hallway throughout the rest of the shift, able to be redirected as needed. S/I, H/I: Denies A/VH: Pt. endorses A/BAIG, states, "They tell me good things!" Sleep: Pt. reports he slept well, sleep hours 6.75 ADL's: Requires redirection from staff Group attendance: yes Were meds taken: Yes Any med S/E: None Mental Status Exam Appearance: Hair/briseno disheveled, appropriately dressed Eye contact: Good Behavior: Cooperative, restless, anxious, impulsive, intrusive, hypomanic Speech: WNL, child-like (uses street language) Mood: Animated, child-like Affect: Labile Thought process: Tangental Thought Content: A/BAIG and preoccupation with desire to discharge Cognition: A&O Insight: Poor Judgment: Fair Interventions PRN's used: Ativan Therapeutic interventions: Ensured contract for safety, provided clear and simple instructions, monitored behavior and need for intervention, provided redirection as needed, and maintained Q 15 min safety checks. Restraints/seclusion/emergency medication: N/A Justification of Continued Inpatient Treatment: Pt. continues to require medication adjustments and a safe and supportive environment to restore competency while awaiting court.
[2019-10-31 19:00] VITALS: BP 135/88
[2019-10-31] MEDS: olanzapine 10mg tablet PO SCH (20:54)
[2019-10-31] MEDS: haloperidol 5mg tablet PO PRN (23:03)
--- NOTE | 2019-11-01 00:58 | NUR ---
Nursing Progress Note Legal hold: [address] hold for competency needs Report received from JAGDEEP Castañeda with use of SBAR Why are they here: Patient deemed not to have the capacity to assist his criminal defense attorney in preparation of his defense and does not demonstrate sufficient knowledge of the court system. Therefore it was recommended he be placed in an inpatient unit designed to assist in return to competency (1370). In the past, patient has been diagnosed with Bipolar I disorder, substance abuse disorder, and PTSD. Patient has been in and out of [facility], the shelter and other psychiatric facilities. Upon admission patient reports hearing voices and seeing things "all the time, they never go away." Assessment What has happened this shift: Patient was observed walking the woods at shift change. Patient again greets this advertising writer by name and repeats the same question, hey are you my nurse? Patient appears to be a little more elevated this shift. Patient repetitively keeps telling everyone I have court tomorrow! When asked patient states man, what happens if they dont release, what happens if I have to go back to shelter, what happens if they reschedule me until November. Patient paces halls and is intrusive with staff and peers. Patient denies all MH symptoms. Patient is compliant with HS medications and requests PRN Ativan with scheduled medications. Patient is heard several times yelling out in his room, when asked patient states I cant get to sleep, my body is hyperactive. Patient requests his PRN Haldol. Medication was effective and patient continues to sleep comfortably, respirations even and unlabored. S/I, H/I: Patient denies both. A/VH: Patient denies both. Sleep: Received Ativan with HS medication. See Sleep Assessment for total hours. ADL's: Requires prompting Group attendance: railcar brake operator, no group. Were meds taken: Yes, without incident. Any med S/E: Patient denies, none observed. Mental Status Exam Appearance: Clean, disheveled, wearing personal clothing. Eye contact: Good. Behavior: Hypomanic, loud, anxious Speech: Clear, hyperverbal, loud Mood: Elevated. Affect: Congruent with mood Thought process: Disorganized Thought Content: Tomorrows court hearing. Cognition: A&Ox3 Insight: Poor Judgment: Poor Interventions PRN's used: Ativan, Haldol. Therapeutic interventions: 1:1 therapeutic assessment, medication administration/education/monitoring, limit setting, provided redirection as needed, provided clear, simple instructions, Q15 min. safety checks. Restraints/seclusion/emergency medication: N/A Justification of Continued Inpatient Treatment: Patient continues to require medication adjustments and a safe and supportive environment to restore competency while awaiting court.
[2019-11-01 08:00] VITALS: BP 121/65
[2019-11-01] MEDS: divalproex sodium 250mg tablet PO SCH ×2 (08:38→20:15)
--- NOTE | 2019-11-01 14:56 | NUR ---
Nursing Progress Note: Legal hold: 1370 Client on involuntary status for GD Report received from nurse with use of SBAR: JAGDEEP Maldonado Why are they here: Patient deemed not to have the capacity to assist his common[place] attorney in preparation of his defense and does not demonstrate sufficient knowledge of the court system. Therefore it was recommended he be placed in an inpatient unit designed to assist in return to competency (1370). In the past, patient has been diagnosed with Bipolar I disorder, substance abuse disorder, and PTSD. Patient has been in and out of [facility], the halfway and other psychiatric facilities. Upon admission patient reports hearing voices and seeing things "all the time, they never go away." Assessment What has happened this shift: Received patient asleep in bed at the beginning of the shift, he awoke for breakfast, and is his usual routine returned back to bed. Pt. presented as cooperative, restless, slightly agitated, and fatigued. Attempted to complete 1:1 at bedside, however pt. impulsively stated with racing speech, "Court is cancelled or else I would have gone by now! It is because the police are all lazy." He retreated to bed and refused any further MH assessment. Pt. remained in bed throughout much of the remainder of the shift, getting up for meals. He was later advised by staff that court has rescheduled for Monday and they will be picking him up. Pt. continues to be able to be redirected as needed. S/I, H/I: Unable to assess A/VH: Unable to assess Sleep: Pt. naps throughout the day, sleep hours are 7.25 ADL's: Requires redirection from staff Group attendance: yes Were meds taken: Yes Any med S/E: None Mental Status Exam Appearance: Hair/briseno disheveled, appropriately dressed Eye contact: Good Behavior: Cooperative, restless, slightly agitated, and fatigued Speech: WNL, child-like (uses street language) Mood: Animated, child-like, however slightly agitated/restless this shift Affect: Labile Thought process: Tangental Thought Content: Preoccupation with court and desire to discharge Cognition: A&O Insight: Poor Judgment: Fair Interventions PRN's used: None Therapeutic interventions: Ensured contract for safety, provided clear and simple instructions, monitored behavior and need for intervention, provided redirection as needed, provided education on rescheduling of court date, and maintained Q 15 min safety checks. Restraints/seclusion/emergency medication: N/A Justification of Continued Inpatient Treatment: Pt. continues to require medication adjustments and a safe and supportive environment to restore competency while awaiting court.
[2019-11-01 19:42] VITALS: BP 130/79
[2019-11-01] MEDS: olanzapine 10mg tablet PO SCH (20:16)
[2019-11-01] MEDS: LORazepam 1 MG tablet PO PRN (20:21)
--- NOTE | 2019-11-02 03:49 | NUR ---
Nursing Progress Note: Legal hold: 1370 Client on involuntary status to determine competency for court Report received from TIP Castañeda with use of SBAR Why are they here: Patient deemed not to have the capacity to assist his business attorney in preparation of his defense and does not demonstrate sufficient knowledge of the court system. Therefore it was recommended he be placed in an inpatient unit designed to assist in return to competency (1370). In the past patient has been diagnosed with Bipolar I disorder, substance abuse disorder and PTSD. Patient has been in and out of [facility], [facility] and other psychiatric facilities. Upon admission patient reports hearing voices and seeing things "all the time, they never go away." he was cooperative with admission process. Assessment What has happened this shift: The patient was seen at bedside for 1:1 assessment he voices being worried about court and the possibility of going to retirement. Pt is hopping around the unit on shift change hyperverbal and repetitive in his speech. "I'm going to do the crime, I'm going to do the crimes, row, row." He says this excitedly and prances away. Pt is hyper but is cooperative. S/I, H/I: Denies. A/VH: denies. Sleep: See sleep assessment. ADL's: Independent Group attendance: material handler 2nd shift no group. Were meds taken: Yes. Any med S/E: None reported or observed Mental Status Exam Appearance: Disheveled, wears hat and personal clothing. Eye contact: Good, direct Speech: Pressured, loud, inappropriate Behavior: Intrusive, loud, child-like, anxious. Mood: Labile Affect: Constricted Thought process: Flight of ideas Thought Content: Medication, charges, snacks Cognition: A/Ox4 Insight: Poor Judgment: Poor Interventions PRN's used: Ativan 2mg Therapeutic interventions: Provided therapeutic communication and active listening, monitored behavior provided redirecting as needed, medication administration/education/monitoring, boundary setting, maintained Q 15min safety checks. Restraints/seclusion/emergency medication: N/A Justification of Continued Inpatient Treatment: Patient is here to determine if competency can be restored for court.
[2019-11-02 07:55] VITALS: BP 134/70
[2019-11-02] MEDS: LORazepam 1 MG tablet PO PRN ×3 (08:08→19:31)
[2019-11-02] MEDS: divalproex sodium 250mg tablet PO SCH ×2 (08:10→20:25)
--- NOTE | 2019-11-02 16:23 | NUR ---
Nursing Progress Note: Legal hold: 1370 Client on involuntary status for GD Report received from nurse with use of SBAR: Why are they here: Patient deemed not to have the capacity to assist his estate planning attorney in preparation of his defense and does not demonstrate sufficient knowledge of the court system. Therefore it was recommended he be placed in an inpatient unit designed to assist in return to competency (1370). In the past, patient has been diagnosed with Bipolar I disorder, substance abuse disorder, and PTSD. Patient has been in and out of [facility], the [facility] and other psychiatric facilities. Upon admission patient reports hearing voices and seeing things "all the time, they never go away." Assessment What has happened this shift: Patient was asleep at change of shift. He was easily aroused and able to take his medications. He is agitated yelling at other patients and staff in an intrusive, but nonthreatening manner. He is very childlike and presents as a street smart [age] year old child. He is not very articulate. His mood is upbeat and hypomanic. He reports that he continue to hear voices. S/I, H/I: Unable to assess A/VH: Unable to assess Sleep: Pt. naps throughout the day, sleep hours are 7.25 ADL's: Requires redirection from staff Group attendance: yes Were meds taken: Yes Any med S/E: None Mental Status Exam Appearance: Hair/briseno disheveled, appropriately dressed Eye contact: Good Behavior: restless, agitated, Speech: Rapid, pressured, uses street slang Mood: Animated, child-like, Bizarre, agitated Affect: Labile Thought process: Bizarre, disorganized Thought Content: Preoccupation with court and desire to discharge Cognition: A&O Insight: Poor Judgment: Poor Interventions PRN's used: Ativan Therapeutic interventions: Ensured contract for safety, provided clear and simple instructions, monitored behavior and need for intervention, provided redirection as needed, provided education on rescheduling of court date, and maintained Q 15 min safety checks. Restraints/seclusion/emergency medication: N/A Justification of Continued Inpatient Treatment: Pt. continues to require medication adjustments and a safe and supportive environment to restore competency while awaiting court.
[2019-11-02] MEDS: olanzapine 10mg tablet PO SCH (20:24)
--- NOTE | 2019-11-03 02:33 | NUR ---
Nursing Progress Note: Legal hold: 1370 Client on involuntary status to determine competency for court Report received from TIP Castañeda with use of SBAR Why are they here: Patient deemed not to have the capacity to assist his assistant district attorney in preparation of his defense and does not demonstrate sufficient knowledge of the court system. Therefore it was recommended he be placed in an inpatient unit designed to assist in return to competency (1370). In the past patient has been diagnosed with Bipolar I disorder, substance abuse disorder and PTSD. Patient has been in and out of [facility], the longterm and other psychiatric facilities. Upon admission patient reports hearing voices and seeing things "all the time, they never go away." he was cooperative with admission process. Assessment What has happened this shift: Patient on the unit socializing with peers and staff at the beginning of shift. Patient remains hyper, hyperverbal and intrusive but redirectable with continuous reminders from staff. Compliant with all medication; PRN Ativan provided upon request with positive effect. Patient c/o anxiety r/t preoccupation of possible court rulings. He refused VS this shift. Patient talked on the phone with both parents and participated in HS snack prior to bed. S/I, H/I: Denies A/VH: Denies Sleep: Refer to sleep assessment ADL's: Independent Group attendance: No groups this shift Were meds taken: Yes Any med S/E: None reported or observed Mental Status Exam Appearance: Disheveled, wearing personal clothing. Eye contact: Good, direct Speech: Pressured, loud, inappropriate Behavior: Intrusive, loud, child-like, anxious. Mood: Labile Affect: Constricted Thought process: Disorganized Thought Content: Preoccupation of court ruling Cognition: A/Ox4 Insight: Poor Judgment: Poor Interventions PRN's used: Ativan 2mg Therapeutic interventions: Provided therapeutic communication and active listening, monitored behavior provided redirecting as needed, medication administration/education/monitoring, boundary setting, maintained Q 15min safety checks. Restraints/seclusion/emergency medication: N/A Justification of Continued Inpatient Treatment: Patient is here to determine if competency can be restored for court.
[2019-11-03] MEDS: haloperidol 5mg tablet PO PRN ×3 (07:30→23:54)
[2019-11-03] MEDS: divalproex sodium 250mg tablet PO SCH ×2 (07:30→20:29)
[2019-11-03 07:45] VITALS: BP 130/63
--- NOTE | 2019-11-03 17:18 | NUR ---
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 Therefore it was recommended he be placed in an inpatient unit designed to assist in return to competency (1370). In the past, patient has been diagnosed with Bipolar I disorder, substance abuse disorder, and PTSD. Patient has been in and out of [facility], the long-term and other psychiatric facilities. Upon admission patient reports hearing voices and seeing things "all the time, they never go away." Assessment What has happened this shift: Patient was asleep at change of shift. He woke up on his own half way through breakfast. He ate breakfast and then napped until lunch. After lunch he napped again. He woke up around four and started calling for staff to talk to by name. Then he amused himself in the hallway mirror making faces. S/I, H/I: Unable to assess A/VH: Unable to assess Sleep: Pt. naps throughout the day ADL's: Requires redirection from staff Group attendance: yes Were meds taken: Yes Any med S/E: None Mental Status Exam Appearance: Disheveled, no shower today, scruffy Eye contact: Good Behavior: restless, agitated, Speech: Rapid, pressured, uses street slang Mood: Animated, child-like, Bizarre, Affect: Labile Thought process: Bizarre, disorganized Thought Content: Preoccupation with court and desire to discharge Cognition: A&O X3 Insight: Poor Judgment: Poor Interventions PRN's used: Haldol Therapeutic interventions: Ensured contract for safety, provided clear and simple instructions, monitored behavior and need for intervention, provided redirection as needed, provided education on rescheduling of court date, and maintained Q 15 min safety checks. Restraints/seclusion/emergency medication: N/A Justification of Continued Inpatient Treatment: Pt. continues to require medication adjustments and a safe and supportive environment to restore competency while awaiting court.
[2019-11-03 20:00] VITALS: BP 121/74
[2019-11-03] MEDS: olanzapine 10mg tablet PO SCH (20:30)
[2019-11-03] MEDS: LORazepam 1 MG tablet PO PRN (20:30)
--- NOTE | 2019-11-04 00:55 | NUR ---
Nursing Progress Note: Legal hold: 1370 Client on involuntary status for GD Report received from nurse with use of SBAR: Why are they here: Patient deemed not to have the capacity to assist his estate attorney in preparation of his defense and does not demonstrate sufficient knowledge of the court system. Therefore it was recommended he be placed in an inpatient unit designed to assist in return to competency (1370). In the past, patient has been diagnosed with Bipolar I disorder, substance abuse disorder, and PTSD. Patient has been in and out of [facility], the longterm and other psychiatric facilities. Upon admission patient reports hearing voices and seeing things "all the time, they never go away." Assessment What has happened this shift: Patient was asleep at change of shift. He woke up and went to the rec room sat down and watched tv for a little bit then went back to bed. Pt got up for snack and was a little more active. He became more active and intrusive towards the end of snack time. After med pass pt was him self talking to anybody who came close needing redirection for yelling and running in the woods. Pt in bed at 2220 and by 2330 needed a prn for anxiety about his court stuff then went to sleep. S/I, H/I: Unable to assess A/VH: Unable to assess Sleep: Pt. naps throughout the day ADL's: Requires redirection from staff Group attendance: yes Were meds taken: Yes Any med S/E: None Mental Status Exam Appearance: Disheveled, no shower today, scruffy Eye contact: Good Behavior: restless, agitated, Speech: Rapid, pressured, uses street slang Mood: Animated, child-like, Bizarre, Affect: Labile Thought process: Bizarre, disorganized Thought Content: Preoccupation with court and desire to discharge Cognition: A&O X3 Insight: Poor Judgment: Poor Interventions PRN's used: Haldol x 2, Ativan Therapeutic interventions: Ensured contract for safety, provided clear and simple instructions, monitored behavior and need for intervention, provided redirection as needed, provided education on rescheduling of court date, and maintained Q 15 min safety checks. Restraints/seclusion/emergency medication: N/A Justification of Continued Inpatient Treatment: Pt. continues to require medication adjustments and a safe and supportive environment to restore competency while awaiting court.
[2019-11-04] MEDS: divalproex sodium 250mg tablet PO SCH (07:28)
[2019-11-04] MEDS ORDERED: OLAN20TA34 PO (07:33)
[2019-11-04] MEDS ORDERED: DIVA-76 PO (07:33)
[2019-11-04] MEDS ORDERED: DIVA250T4 PO (07:33)
--- NOTE | 2019-11-04 07:40 | NUR ---
Pt. discharged to court escorted by [facility]. Pt. in no apparent psychological or emotional distress. Pt. reports he is hopeful he will be released to his grandma's today. Pt. denies SI/HI, A/V hallucinations. Pt. given AM medications. Pt. discharged with all his belongings.
== END 2019-11-04 07:40 | DRG 753 ==
LOC: ADULT MH 14:40
PROVIDERS: ADMIT Psychiatry & Neurology Psychiatry; ATTEND Psychiatry & Neurology Psychiatry
DX: F31.9 Bipolar disorder, unspecified (principal); Z91.14 Patient's other noncompliance with medication regimen; F17.210 Nicotine dependence, cigarettes, uncomplicated; F19.10 Other psychoactive substance abuse, uncomplicated; Z79.899 Other long term (current) drug therapy
CPT/HCPCS: 36415; 80053; 80061; 80164; 83036; 84443; 85025; 87081; 99285; J1200; J1630; J2060; Q0163

== ENCOUNTER 2022-07-26 21:20 | Emergency (ER) | payer MEDICAID ==
[~2022-07-26] VITALS: Ht 182.9 cm; Wt 80.0 kg
[~2022-07-26 21:20] MED LIST: DIVA250T4 PO; OLAN20TA34 PO
--- NOTE | 2022-07-26 21:42 | NUR ---
Mother at bedside. States she believes patient did meth today and that is contributing to his erratic behavior and rylee.
[2022-07-26] MEDS ORDERED: QUET300T20 PO (21:54)
[2022-07-26] MEDS ORDERED: risperiDONE 0.5mg tablet PO STA (21:57)
[2022-07-26] MEDS ORDERED: OLANZapine **IM** 10 mg inj. IM STA (21:57)
[2022-07-26 21:58] LABS: BASOPHILS # (AUTO) 0.1 X10'3 (0-0.2); BASOPHILS % (AUTO) 0.7 % (0-1); EOSINOPHILS # (AUTO) 0.6 X10'3 (0-0.9); HEMATOCRIT 42.7 % (42.0-52.0); HEMOGLOBIN 14.3 g/dl (14.0-17.9); LYMPHOCYTES # (AUTO) 2.4 X10'3 (1.1-4.8); LYMPHOCYTES % (AUTO) 26.2 % (21-51); MEAN CORPUSCULAR HEMOGLOBIN 30.4 PG (27.0-31.0); MEAN CORPUSCULAR HGB CONC 33.5 g/dL (33.0-36.5); MEAN CORPUSCULAR VOLUME 90.7 FL (78-98); MEAN PLATELET VOLUME 6.8 FL (7.4-10.4); MONOCYTES # (AUTO) 0.7 X10'3 (0-0.9); MONOCYTES % (AUTO) 7.9 % (2-12); NEUTROPHILS # (AUTO) 5.4 X10'3 (1.8-7.7); NEUTROPHILS % (AUTO) 58.2 % (42-75); PLATELET COUNT 336 X10'3 (140-440); WHITE BLOOD COUNT 9.3 X10'3 (4.5-11.0)
[2022-07-26 22:13] LABS: ALANINE AMINOTRANSFERASE 20 U/L (12-78); ALBUMIN 4.1 G/DL (3.4-5.0); ALBUMIN/GLOBULIN RATIO 1.2 (1.1-1.5); ALKALINE PHOSPHATASE 102 IU/L (46-116); ANION GAP 11 (8-16); ASPARTATE AMINO TRANSFERASE 21 U/L (10-37); BILIRUBIN,TOTAL 0.6 MG/DL (0.1-1.0); BLOOD UREA NITROGEN 19 MG/DL (7-18); BUN/CREATININE RATIO 22.6 (5.4-32.0); CALCIUM 9.6 MG/DL (8.5-10.1); CHLORIDE 101 MMOL/L (99-107); CREATININE 0.84 MG/DL (0.60-1.10); GLUCOSE 79 MG/DL (70-104); POTASSIUM 3.5 MMOL/L (3.5-5.1); SODIUM 139 MMOL/L (135-145); TOTAL CARBON DIOXIDE 27.2 MMOL/L (24-32); TOTAL PROTEIN 7.6 G/DL (6.4-8.2); eGFR > 90 ML/MIN
--- NOTE | 2022-07-27 06:40 | NUR ---
Patient sleeping prone. No distress oberved. Continue to monitor.
--- NOTE | 2022-07-27 08:25 | NUR ---
Patient sleeping but breakfast is all eaten. Patient does not appear to want to awaken to give a urine sample. Continue to monitor.
--- NOTE | 2022-07-27 10:17 | NUR ---
Patient sleeping and will not awaken to give a urine sample. Patient is breathing and adjusting himself in bed. Continue to monitor.
--- NOTE | 2022-07-27 12:08 | NUR ---
Pablo advised patient that his lunch tray was at the nurse's station and that he needs to give a urine sample and then we will bring him his tray. Patient got up and gave a urine sample and picked up his tray and took it back to his room to eat. No distress observed. Continue to monitor.
--- NOTE | 2022-07-27 12:20 | NUR ---
Patient making strange noises "Bop!," "Beep!," Woot!,". Patient appears a little disorganized and psychotic. Continue to monitor.
[2022-07-27 12:31] LABS: CLARITY,URINE CLEAR (Clear); COLOR,URINE YELLOW (Yellow); GLUCOSE, URINE NEGATIVE (Neg); KETONES,URINE TRACE mg/dl (Neg); LEUKOCYTE ESTERASE ,URINE NEGATIVE (Neg); NITRITES, URINE NEGATIVE (Neg); OCCULT BLOOD,URINE NEGATIVE (Neg); PROTEIN,URINE NEGATIVE (Neg); UROBILINOGEN,URINE 0.2 E.U/dL (0.2-1.0)
[2022-07-27 12:33] LABS: UA COLLECTION TYPE CLN CATCH MIDSTREAM; URINE AMPHETAMINE SCREEN POSITIVE (Neg); URINE BARBITUATE SCREEN NEGATIVE (Neg); URINE BENZODIAZEPINES SCREEN NEGATIVE (Neg); URINE CANNABINOID SCREEN POSITIVE (Neg); URINE COCAINE SCREEN NEGATIVE (Neg); URINE METHADONE SCREEN NEGATIVE (Neg); URINE OPIATE SCREEN NEGATIVE (Neg); URINE PHENCYCLIDINE SCREEN NEGATIVE (Neg)
[2022-07-27] MEDS: olanzapine 10mg tablet PO SCH ×2 (13:42→20:28)
--- NOTE | 2022-07-27 14:09 | NUR ---
Patient sleeping prone. No distress observed. Continue to monitor.
--- NOTE | 2022-07-27 14:10 | NUR ---
Met with patient in regards to substance use and to see if patient was interested in resources for treatment options. Patient declined resources.
--- NOTE | 2022-07-27 16:05 | NUR ---
Lexus LUONG, evaluating patient. No distress observed. Continue to monitor.
--- NOTE | 2022-07-27 17:52 | NUR ---
Patient appears to be responding to internal stimuli. Patient sitting in his room by himself and having a conversation. Continue to monitor.
--- NOTE | 2022-07-27 18:33 | NUR ---
Alirio Linares [phone].
--- NOTE | 2022-07-27 18:49 | NUR ---
Attempted one to one with the patient but he adamently refused to cooperate with any kind of assessment. He repeatedly asked to be left alone. He did eat 100% of his dinner. He could be heard actively responding to internal stimuli.
[2022-07-27] MEDS ORDERED: quetiapine fumarate ER 300mg tablet PO SCH (21:00)
--- NOTE | 2022-07-27 21:26 | NUR ---
The patient awakened briefly for evening medications which he took and then asked for and received a sandwhich. He appears to be back asleep at this time.
--- NOTE | 2022-07-27 23:41 | NUR ---
The patient appears to be sleeping.
--- NOTE | 2022-07-28 01:34 | NUR ---
The patient appears to be sleeping
--- NOTE | 2022-07-28 02:48 | NUR ---
The patient appears to be sleeping
--- NOTE | 2022-07-28 04:25 | NUR ---
The patient appears to be sleeping
--- NOTE | 2022-07-28 05:39 | NUR ---
The patient appears to be sleeping
[2022-07-28 05:47] VITALS: BP 91/49
--- NOTE | 2022-07-28 06:07 | NUR ---
Report to Kashmir Aamdo
--- NOTE | 2022-07-28 06:57 | NUR ---
Patient sleeping prone. No distress observed. Continue to monitor.
--- NOTE | 2022-07-28 08:17 | NUR ---
Patient eating breakfast. No distress observed. Continue to monitor.
[2022-07-28] MEDS: olanzapine 10mg tablet PO SCH (08:50)
--- NOTE | 2022-07-28 10:11 | NUR ---
Patient sleeping prone. No distress observed. Continue to monitor.
--- NOTE | 2022-07-28 11:42 | NUR ---
Patient continues to sleep. Patient going to [facility] around 1300. Continue to monitor.
--- NOTE | 2022-07-28 12:01 | NUR ---
Patient up to nurse's station asking for a sandwich. RN advised patient that lunch is almose here. Patient agreed. Patient back at his room responding to internal stimuli. Continue to monitor.
--- NOTE | 2022-07-28 13:14 | NUR ---
pt belongings and 5150 given to driver guard for transport. Tech pulled laces out of the shoes and geve them to the pt to wear out to the car.
== END 2022-07-28 13:15 ==
LOC: ER 21:21
DX: F20.9 Schizophrenia, unspecified (principal); F31.9 Bipolar disorder, unspecified; Z20.822 Contact with and (suspected) exposure to COVID-19; R41.82 Altered mental status, unspecified; G24.4 Idiopathic orofacial dystonia; F12.90 Cannabis use, unspecified, uncomplicated; F15.90 Other stimulant use, unspecified, uncomplicated; Z72.89 Other problems related to lifestyle; Z79.899 Other long term (current) drug therapy
CPT/HCPCS: 36415; 80053; 80305; 81003; 85025; 87811; 96372; 99285; J3490; 84443

== ENCOUNTER 2022-08-29 09:40 | Emergency (ER) | payer MEDICAID ==
[~2022-08-29] VITALS: Ht 180.3 cm; Wt 65.0 kg
[~2022-08-29 09:40] MED LIST changes: -DIVA250T4 PO; -OLAN20TA34 PO; +QUET300T20 PO
--- NOTE | 2022-08-29 10:30 | NUR ---
Alirio "mom" would like to be included in care and has information about past history. [phone]
[2022-08-29 12:10] LABS: BASOPHILS % (AUTO) 0.5 % (0-1); EOSINOPHILS # (AUTO) 0.2 X10'3 (0-0.9); EOSINOPHILS % (AUTO) 3.8 % (0-6); HEMATOCRIT 43.7 % (42.0-52.0); HEMOGLOBIN 14.6 g/dl (14.0-17.9); LYMPHOCYTES # (AUTO) 1.8 X10'3 (1.1-4.8); LYMPHOCYTES % (AUTO) 30.4 % (21-51); MEAN CORPUSCULAR HEMOGLOBIN 30.7 PG (27.0-31.0); MEAN CORPUSCULAR HGB CONC 33.4 g/dL (33.0-36.5); MEAN CORPUSCULAR VOLUME 91.9 FL (78-98); MEAN PLATELET VOLUME 6.8 FL (7.4-10.4); MONOCYTES # (AUTO) 0.6 X10'3 (0-0.9); MONOCYTES % (AUTO) 9.2 % (2-12); NEUTROPHILS # (AUTO) 3.4 X10'3 (1.8-7.7); NEUTROPHILS % (AUTO) 56.1 % (42-75); PLATELET COUNT 329 X10'3 (140-440); RED BLOOD COUNT 4.76 X10'6 (4.70-6.10); RED CELL DISTRIBUTION WIDTH 14.8 % (11.5-14.5)
[2022-08-29 12:24] LABS: ALBUMIN 3.9 G/DL (3.4-5.0); ANION GAP 6 (8-16); BILIRUBIN,TOTAL 0.6 MG/DL (0.1-1.0); BLOOD UREA NITROGEN 12 MG/DL (7-18); BUN/CREATININE RATIO 17.9 (10.0-20.0); CALCIUM 9.2 MG/DL (8.5-10.1); CHLORIDE 101 MMOL/L (99-107); CREATININE 0.67 MG/DL (0.60-1.10); GLUCOSE 86 MG/DL (70-104); POTASSIUM 4.2 MMOL/L (3.5-5.1); SODIUM 136 MMOL/L (135-145); TOTAL CARBON DIOXIDE 28.6 MMOL/L (24-32); TOTAL PROTEIN 7.3 G/DL (6.4-8.2); eGFR > 90 ML/MIN
[2022-08-29 12:25] LABS: ALANINE AMINOTRANSFERASE 28 U/L (12-78); ALBUMIN/GLOBULIN RATIO 1.1 (1.1-1.5); ALKALINE PHOSPHATASE 99 IU/L (46-116); ASPARTATE AMINO TRANSFERASE 24 U/L (10-37)
[2022-08-29 12:29] LABS: ETHANOL < 0.010 GM/DL (0.0-0.010)
--- NOTE | 2022-08-29 17:39 | NUR ---
Covid binax test completed on pt. Pt dressed into green scrubs, and urinated on wall of room while dressing. Pt asking for dinner early again.
--- NOTE | 2022-08-30 01:20 | NUR ---
pt up to use the restroom. ambulated with steady gate no visual signs of distress nor discomfort seen. pt requested a snack, food provided.
[2022-08-30 01:32] LABS: CLARITY,URINE CLEAR (Clear); COLOR,URINE YELLOW (Yellow); GLUCOSE, URINE NEGATIVE (Neg); KETONES,URINE NEGATIVE (Neg); LEUKOCYTE ESTERASE ,URINE NEGATIVE (Neg); NITRITES, URINE NEGATIVE (Neg); OCCULT BLOOD,URINE NEGATIVE (Neg); PH,URINE 6.5 (4.8-8.0); PROTEIN,URINE NEGATIVE (Neg); UROBILINOGEN,URINE 0.2 E.U/dL (0.2-1.0)
[2022-08-30 01:41] LABS: URINE AMPHETAMINE SCREEN POSITIVE (Neg); URINE BARBITUATE SCREEN NEGATIVE (Neg); URINE BENZODIAZEPINES SCREEN NEGATIVE (Neg); URINE CANNABINOID SCREEN POSITIVE (Neg); URINE COCAINE SCREEN NEGATIVE (Neg); URINE METHADONE SCREEN NEGATIVE (Neg); URINE OPIATE SCREEN NEGATIVE (Neg); URINE PHENCYCLIDINE SCREEN NEGATIVE (Neg)
[2022-08-30 01:43] LABS: UA COLLECTION TYPE CLN CATCH MIDSTREAM
--- NOTE | 2022-08-30 06:46 | NUR ---
Patient sleeping prone. No distress observed. Continue to monitor.
--- NOTE | 2022-08-30 08:14 | NUR ---
Patient sitting up and eating breakfast. No distress observed. Continue to monitor.
--- NOTE | 2022-08-30 09:34 | NUR ---
CHERISE, Cici, evaluating patient. No distress observed. Continue to monitor.
--- NOTE | 2022-08-30 10:15 | NUR ---
Met with patient in regards to substance use and to see if patient was interested in resources for treatment options. Patient declined resources.
--- NOTE | 2022-08-30 10:22 | NUR ---
Patient eating a sandwich and drinking an apple juice. No distress observed. Continue to monitor.
--- NOTE | 2022-08-30 10:28 | NUR ---
Cici LUONG, re-evaluating patient for grave disabiltiy. Continue to monitor.
--- NOTE | 2022-08-30 11:11 | NUR ---
Patient was placed on a hold for [facility] disabled. Patient is acting bizarre. Continue to monitor.
--- NOTE | 2022-08-30 12:55 | NUR ---
Patient ate 2 meal trays. No distress observed. Continue to monitor.
--- NOTE | 2022-08-30 13:39 | NUR ---
Patient sleeping. No distress observed. Continue to monitor.
--- NOTE | 2022-08-30 14:16 | NUR ---
Gave patient a sandwich and a juice. Continue to monitor.
--- NOTE | 2022-08-30 14:16 | NUR ---
Patient accepted by [facility] at 1330. Patient going to [facility] [place] [facility] at 2030
--- NOTE | 2022-08-30 15:39 | NUR ---
Patient eating another snack. No distress observed. Continue to monitor.
--- NOTE | 2022-08-30 16:45 | NUR ---
Nurse received pt from the main ER and roomed into 25. Pt ambulated independently with a steady gait. No acute distress noted. Pt is watching tv with his peer.
[2022-08-30] MEDS ORDERED: PALI9TAB4 PO (17:39)
[2022-08-30 18:28] VITALS: BP 103/59
--- NOTE | 2022-08-30 18:30 | NUR ---
Received patient report. Plan for him to discharge at 1999 to [facility].
--- NOTE | 2022-08-30 19:43 | NUR ---
Attempted to do patient phys assesment and pass HS medication prior to transfer to [facility]. Refused phys. assessment and HS medication. Patient very paranoid. Will continue to monitor.
--- NOTE | 2022-08-30 20:02 | NUR ---
[facility]'s [facility].
--- NOTE | 2022-08-30 20:20 | NUR ---
Transport arrived to transfer patient to [facility]. Escorted out via W/C with security. Patient eager to leave. Made patient aware that Nicole would be admitting him over at [facility]. Patient replies, "Nicole is my fucking girl!"
[2022-08-30] MEDS ORDERED: quetiapine fumarate ER 300mg tablet PO SCH (21:00)
[2022-08-31] MEDS ORDERED: PALIPERIDONE 3 MG TAB.ER.24 PO SCH (08:00)
== END 2022-08-30 20:20 | disposition home or self-care (01) ==
LOC: ER 09:40
DX: F79 Unspecified intellectual disabilities (principal); F20.9 Schizophrenia, unspecified; Z20.822 Contact with and (suspected) exposure to COVID-19; F31.9 Bipolar disorder, unspecified; F12.90 Cannabis use, unspecified, uncomplicated; F15.90 Other stimulant use, unspecified, uncomplicated; Z72.89 Other problems related to lifestyle; Z79.899 Other long term (current) drug therapy
CPT/HCPCS: 36415; 80053; 80305; 80320; 81003; 84443; 85025; 87811; 99285

== ENCOUNTER 2022-09-13 12:26 | Emergency (ER) | payer MEDICAID ==
[~2022-09-13] VITALS: Ht 177.8 cm; Wt 68.2 kg
[~2022-09-13 12:26] MED LIST changes: +PALI9TAB4 PO
[2022-09-13 13:02] VITALS: BP 113/77
[2022-09-13 13:09] LABS: BASOPHILS % (AUTO) 0.6 % (0-1); EOSINOPHILS # (AUTO) 0.3 X10'3 (0-0.9); EOSINOPHILS % (AUTO) 4.6 % (0-6); HEMATOCRIT 44.5 % (42.0-52.0); HEMOGLOBIN 14.6 g/dl (14.0-17.9); LYMPHOCYTES # (AUTO) 2.2 X10'3 (1.1-4.8); LYMPHOCYTES % (AUTO) 32.5 % (21-51); MEAN CORPUSCULAR HEMOGLOBIN 30.5 PG (27.0-31.0); MEAN CORPUSCULAR HGB CONC 32.9 g/dL (33.0-36.5); MEAN CORPUSCULAR VOLUME 92.8 FL (78-98); MEAN PLATELET VOLUME 6.9 FL (7.4-10.4); MONOCYTES # (AUTO) 0.4 X10'3 (0-0.9); MONOCYTES % (AUTO) 6.3 % (2-12); NEUTROPHILS # (AUTO) 3.9 X10'3 (1.8-7.7); PLATELET COUNT 316 X10'3 (140-440); RED CELL DISTRIBUTION WIDTH 14.6 % (11.5-14.5); WHITE BLOOD COUNT 6.9 X10'3 (4.5-11.0)
[2022-09-13 13:39] LABS: ALANINE AMINOTRANSFERASE 38 U/L (12-78); ALBUMIN 3.8 G/DL (3.4-5.0); ALKALINE PHOSPHATASE 104 IU/L (46-116); ANION GAP 7 (8-16); ASPARTATE AMINO TRANSFERASE 20 U/L (10-37); BILIRUBIN,TOTAL 0.2 MG/DL (0.1-1.0); BLOOD UREA NITROGEN 12 MG/DL (7-18); BUN/CREATININE RATIO 20.7 (10.0-20.0); CALCIUM 9.5 MG/DL (8.5-10.1); CHLORIDE 101 MMOL/L (99-107); CREATININE 0.58 MG/DL (0.60-1.10); GLUCOSE 107 MG/DL (70-104); POTASSIUM 3.9 MMOL/L (3.5-5.1); SODIUM 137 MMOL/L (135-145); TOTAL CARBON DIOXIDE 29.5 MMOL/L (24-32); TOTAL PROTEIN 7.5 G/DL (6.4-8.2); eGFR > 90 ML/MIN
[2022-09-13 13:40] LABS: ETHANOL < 0.010 GM/DL (0.0-0.010)
== END 2022-09-13 14:29 | disposition left against medical advice (07) ==
LOC: ER 12:26
DX: F25.8 Other schizoaffective disorders (principal); Z20.822 Contact with and (suspected) exposure to COVID-19; F31.9 Bipolar disorder, unspecified; F12.10 Cannabis abuse, uncomplicated; F15.10 Other stimulant abuse, uncomplicated; Z79.899 Other long term (current) drug therapy; Z88.8 Allergy status to other drugs, medicaments and biological substances
CPT/HCPCS: 36415; 80053; 80320; 84443; 85025; 87811; 99285